=== PATIENT | female | born 1945 | race Caucasian/White ===

== ENCOUNTER 2020-01-16 06:49 | Inpatient (IN) ==
--- NOTE | 2019-12-31 15:52 | PAT Medication Instructions ---
Medication Instructions Date of Service December 31, 2019 Home Medications amlodipine 10 mg PO QAM aspirin 81 mg PO QAM fenofibrate nanocrystallized [Tricor] 145 mg PO QAM levothyroxine 88 mcg PO QAM lisinopril 40 mg PO QAM multivitamin 1 tab PO QAM omega 9-yez-thk-fish oil [Fish Oil] 1 cap PO QAM omeprazole 40 mg PO QAM pravastatin 20 mg PO QAM tizanidine [Zanaflex] 4 mg PO HS vitamin E 400 unit PO QAM gabapentin 300 mg PO TID prednisone 10 mg PO QAM STOP taking 2 weeks before surgery If surgery is within 2 weeks, stop taking as soon as possible. omega 0-con-cvj-fish oil [Fish Oil] 1 cap PO QAM vitamin E 400 unit PO QAM STOP taking 48 hours before surgery fenofibrate nanocrystallized [Tricor] 145 mg PO QAM DO NOT take the morning of surgery lisinopril 40 mg PO QAM multivitamin 1 tab PO QAM Take morning of surgery With a small sip of water, OTHERWISE NOTHING TO EAT OR DRINK AFTER MIDNIGHT: amlodipine 10 mg PO QAM aspirin 81 mg PO QAM levothyroxine 88 mcg PO QAM omeprazole 40 mg PO QAM pravastatin 20 mg PO QAM gabapentin 300 mg PO TID prednisone 10 mg PO QAM Take evening before surgery tizanidine [Zanaflex] 4 mg PO HS gabapentin 300 mg PO TID Other Notes If you have any questions please call us at [phone] or [phone] or [phone] or [phone]
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
--- NOTE | 2020-01-01 14:30 | XRay Report ---
XR chest Pre-admission PA/Lat CLINICAL HISTORY: Preoperative evaluation. COMPARISON STUDY: Chest radiograph August 29, 2018. FINDINGS: Lung volumes are normal. There is no consolidation or evidence for pulmonary edema. Mild ca rdiomegaly is unchanged. Incidental note is made of a left clavicular internal fixation and anterior cervical spine fusion. IMPRESSION: No acute cardiopulmonary findings. No change in appearance of the chest. ACT 112: Negative or not required by law. Electronically signed by: Mark Ring M.D. 01/01/2020 2:28 PM
--- NOTE | 2020-01-01 14:40 | Electrocardiogram Report ---
Test Reason : Blood Pressure : / mmHG Vent. Rate : 073 BPM Atrial Rate : 073 BPM P-R Int : 156 ms QRS Dur : 092 ms QT Int : 416 ms P-R-T Axes : 069 053 035 degrees QTc Int : 458 ms Sinus rhythm with Premature supraventricular complexes Otherwise normal ECG When compared with ECG of 29-AUG-2018 11:43, Premature supraventricular complexes are now Present Confirmed by Ilya Saldivar ([id number]) on 01/01/2020 2:40:47 PM Referred By: Randal Ramirez Confirmed By:Ilya Saldivar
[2020-01-01 15:12] LABS: Basophils # (auto) 0.01 K/uL (0-0.2); Basophils % (auto) 0.1 %; Eosinophils # (auto) 0.04 K/uL (0-0.5); Eosinophils % (auto) 0.3 %; Hematocrit (blood only) 41.7 % (37-47); Hemoglobin 13.5 g/dL (12.0-16.0); Immature Granulocytes % (auto) 0.9 %; Lymphocytes # (auto) 2.97 K/uL (1.2-3.4); Lymphocytes % (auto) 25.4 %; Mean Corpuscular Hemoglobin 29.2 pg (25-34); Mean Corpuscular Hgb Conc 32.4 g/dL (32-36); Mean Corpuscular Volume 90.3 fL (80-100); Mean Platelet Volume 10.4 fL (7.4-10.4); Monocytes # (auto) 0.61 K/uL (0.11-0.59); Monocytes % (auto) 5.2 %; Neutrophils # (auto) 7.95 K/uL (1.4-6.5); Neutrophils % (auto) 68.1 %; Platelet Count 257 K/uL (130-400); RDW Coefficient of Variation 15.8 % (11.5-14.5); RDW Standard Deviation 51.9 fL (36.4-46.3); Red Blood Count 4.62 M/uL (4.2-5.4); White Blood Count 11.68 K/uL (4.8-10.8)
[2020-01-01 15:20] LABS: BUN Creatinine Ratio 29.8 (10-20); Calcium 8.8 mg/dl (8.5-10.1); Creatinine Clr Calc Pharmacy 51.2 ml/min; Est GFR (Non-African American) 58.7; Potassium 4.3 mmol/L (3.5-5.1)
[2020-01-01 15:26] LABS: Partial Thromboplastin Ratio 0.8; Partial Thromboplastin Time 21.3 Seconds (21.0-31.0); Prothrombin Time 10.6 Seconds (9.0-12.0)
[2020-01-01 15:31] LABS: Appearance Urine Clear (Clear); Bacteria Urine Automated 4+ (Negative); Bilirubin Urine Negative (Negative); Blood Urine Negative (Negative); Cast Urine Automated 0 /lpf (0-5); Color Urine Yellow; Glucose Urine UA Negative (Negative); Ketones Urine Negative (Negative); Leukocyte Esterase Urine Trace (Negative); Nitrite Urine Negative (Negative); Protein Urine Negative (Negative); RBC Urine Automated 0-4 /hpf (0-4); Urobilinogen Urine Negative (Negative)
[~2020-01-16 06:49] MED LIST: ACETAMINOPHEN 500 MG TAB PO SCH; CEFAZOLIN 2000MG 2,000 MG/15 ML SYR IV SCH; CeleBREX 200 MG CAP PO SCH; GABAPENTIN 300 MG CAP PO SCH; LR 15ML/HR IV SCH
[2020-01-16] MEDS ORDERED: MIDAZOLAM HCL 1 MG/ML 2ML VIAL ONE (08:32)
[2020-01-16] MEDS ORDERED: PROPOFOL IV EMULSION 10 MG/ML 20 ML VIAL IV ONE (08:32)
[2020-01-16] MEDS ORDERED: ROCURONIUM BROMIDE 10 MG/ML 5 ML VIAL ONE ×3 (08:32→10:19)
[2020-01-16] MEDS ORDERED: fentaNYL citrate 100 MCG/2 ML VIAL ONE ×2 (08:32→09:42)
[2020-01-16] MEDS ORDERED: DEXAMETHASONE SOD INJ 4 MG/ML VIAL ONE (08:32)
[2020-01-16] MEDS ORDERED: ONDANSETRON INJ 2 MG/ML 2 ML VIAL ONE (08:32)
--- NOTE | 2020-01-16 08:38 | History & Physical Bridge Note ---
Date of Service January 16, 2020 History & Physical Bridge Note I have examined the patient, reviewed the History & Physical and in the interval since the performance of the History & Physical I have noted the following changes of clinical significance: no changes noted
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
[2020-01-16] MEDS ORDERED: BUPIVACAINE/EPINEPHRINE 0.25% 1:200,000 30 ML VIAL ONE (08:48)
[2020-01-16] MEDS ORDERED: BACITRACIN INJ 50,000 UNIT VIAL ONE (08:49)
[2020-01-16] MEDS ORDERED: FLOSEAL HEMOSTATIC MATRIX 10ML TOP ONE (09:55)
[2020-01-16] MEDS ORDERED: ALBUMIN HUMAN 5% 12.5 GM/250 ML VIAL IV ONE (10:16)
[2020-01-16] MEDS ORDERED: GLYCOPYRROLATE 0.2 MG/ML VIAL ONE (10:33)
[2020-01-16] MEDS ORDERED: NEOSTIGMINE METHYLSULFATE 1 MG/ML 10ML VIAL ONE (10:33)
--- NOTE | 2020-01-16 11:23 | Operative Report ---
Post Operative Report Pre & Post Diagnosis Operation Date: 01/16/20 09:05 Pre-Op Diagnosis: Lumbar spinal stenosis with neurogenic claudication Post-Op Diagnosis: Same I identified the patient and participated in the time-out.: Yes Procedure Operation Date: 01/16/20 09:05 Actual Procedures #1 lumbar decompression with bilateral medial facetectomies and foraminotomies L2-3, L3-4, L4-5. #2 posterior spinal fusion L3-4, L4-5, L5-S1. #3 placement posterior segmental instrumentation L3-S1. #4 interbody fusion L4-5 per #5 placed a peek cage 11 x 22 mm at L4-5 per #6 placement of locally harvested morselized autograft in the posterior lateral gutters. #7 placement infuse collagen sponge, master graft in the posterior lateral gutters and ostial amp and interbody space. Surgeon Randal Ramirez, Math And Physics Instructor Arnel Ryan Estimated Blood Loss 250 Findings See Below Foot 2 inches tall weighing over 79 kg with a BMI in excess of 32. Patient's body habitus did add significant technical difficulty requiring our deeper retractors and longer instruments in order to perform her procedure. This added at least 25% increase in the operative time. Specimens None Indications This is a 74-year-old female presents above-mentioned diagnosis after failing extensive course of nonoperative care is here for surgical intervention. Description of Procedure Patient was met with identified informed consent obtained. Patient was then taken to the operative suite underwent intubation placed in the prone position on the Spenser table on top of the Cyrus frame. All bony prominences well- padded eyes inspected to ensure no external pressure placed upon them. This point the lumbar spine was prepped and draped in normal sterile fashion. Sharp dissection with the assistance of Bovie cautery performed down to and exposing the lamina transverse processes of L3-L4-L5 and the sacral ala bilaterally. From a caudal cephalad fashion complete laminectomy of L4 L3 and partial laminectomy of L2 was performed including bilateral medial facetectomies and for aminotomies addressing severe spinal stenosis. Pedicle screws were then placed in L3-L4-L5 and S1 levels bilaterally with assistance of fluoroscopy the proper sized gage placed. By way of a trans-foraminal approach on the left complete discectomy was performed endplates curetted to subcortical bleeding bone and 11 x 22 mm peek cage filled with osteo-bone graft tapped position. The rods were then locked into final position bilaterally. The transverse processes of L3-L4-L5 and sacral ala burred to subcortical bleeding bone. Infuse collagen sponge master graft local autograft was placed in the posterior gutters. 15 round HAFSA drain inserted. The incision was then closed with 1 Vicryl in the fascia 2-0 Vicryl subcutaneously and 4 Monocryl for final skin closure. Steri- Strip sterile dressings placed. Patient will continue PACU stable addition. Please note spinal cord monitoring was utilized that the procedure no changes noted. Lastly Arnel Ryan was present at the entire procedure involved the patient positioning complex portions of the surgery and final skin closure. I attest to the content of the Intraoperative Record and any orders documented therein. Any exceptions are noted below.
--- NOTE | 2020-01-16 11:33 | Fluoroscopy Report ---
FL lumbar spine 2-3V CLINICAL HISTORY: L3-L5 DECOMPRESSION AND FUSION COMPARISON STUDY: FLUOROSCOPY TIME: 26 seconds. NUMBER OF FLUOROSCOPIC IMAGES: 2 FINDINGS: There are postsurgical changes of an L4-5 discectomy and interbody fusion. There is a grade 1 spondylolisthesis of L4 and L5. There are postsurgical changes of an L3-S1 spinal decompression an d fusion. IMPRESSION: Intraoperative fluoroscopic spot images obtained during an L3-S1 spinal decompression an d fusion. ACT 112: Negative or not required by law. Electronically signed by: Sav Sands M.D. 01/16/2020 11:32 AM
[2020-01-16] MEDS ORDERED: ePHEDrine sulfate 50 MG/ML AMP IV PRN (11:39)
[2020-01-16] MEDS ORDERED: FLUMAZENIL 0.1 MG/1 ML 10 ML VIAL IV PRN (11:39)
[2020-01-16] MEDS ORDERED: PROMETHAZINE HCL 12.5 MG in SODIUM CHLORIDE 0.9% 50 ML IV PRN ×2 (11:39→13:07)
[2020-01-16] MEDS ORDERED: ATROPINE SULFATE 0.1 MG/ML 10ML SYR IV PRN (11:39)
[2020-01-16] MEDS ORDERED: HYDROmorphone INJ 1 MG/ML SYRINGE IV PRN ×2 (11:39→13:07)
[2020-01-16] MEDS ORDERED: NALOXONE HCL 0.4 MG/1 ML VIAL/CARP IV PRN ×2 (11:39→13:07)
[2020-01-16] MEDS ORDERED: fentaNYL citrate 100 MCG/2 ML VIAL IV PRN (11:39)
[2020-01-16] MEDS ORDERED: LABETALOL HCL IV 5 MG/ML 20ML IV PRN (11:39)
[2020-01-16] MEDS ORDERED: ONDANSETRON INJ 2 MG/ML 2 ML VIAL IV PRN ×2 (11:39→13:07)
[2020-01-16 12:00] LABS: Hematocrit (blood only) 33.1 % (37-47); Hemoglobin 10.6 g/dL (12.0-16.0)
--- NOTE | 2020-01-16 12:48 | Anesthesiology Progress Note ---
Date of Service January 16, 2020 Anesthesia Post Procedure Vital Signs Vital Signs: Temp Pulse Pulse Resp BP Pulse Ox 01/16/20 12:45 78 18 165/84 H 93 01/16/20 12:35 36.7 C 77 16 138/88 94 01/16/20 12:25 77 16 138/81 96 01/16/20 12:15 76 14 133/72 95 01/16/20 12:05 77 16 133/72 95 01/16/20 11:55 75 16 127/71 95 01/16/20 11:47 36.5 C 79 14 123/66 96 01/16/20 07:34 36.7 C 74 18 161/92 H 95 Pain Intensity Lower Back: Pain Intensity: 7 Transfer of Care Handoff Completed per policy Notes Mental Status: alert / awake / arousable Patient Amnestic to Procedure: Yes Nausea / Vomiting: adequately controlled Pain: adequately controlled Airway Patency, RR, SpO2: stable & adequate BP & HR: stable & adequate Hydration State: stable & adequate Anesthetic Complications: no major complications apparent
[2020-01-16] MEDS ORDERED: HYDROmorphone INJ 0.5 MG/0.5 ML SYR IV PRN (13:07)
[2020-01-16] MEDS ORDERED: LORazepam 0.5 MG/1 ML VIAL IV PRN (13:07)
[2020-01-16] MEDS ORDERED: SOD PHOSPHATE/SOD BIPHOSPHATE ENEMA 132 ML BTL PR PRN (13:07)
[2020-01-16] MEDS ORDERED: LORazepam 0.5 MG TAB PO PRN (13:07)
[2020-01-16] MEDS ORDERED: DO NOT ADMINISTER FLU VACCINE PRN (13:07)
[2020-01-16] MEDS ORDERED: ALUMINUM/MAGNESIUM SUSP 30 ML UDC PO PRN (13:07)
[2020-01-16] MEDS ORDERED: FAMOTIDINE 20 MG TAB PO PRN (13:07)
[2020-01-16] MEDS ORDERED: DO NOT ADMINISTER PNEUMOCOCCAL VACCINE PRN (13:07)
[2020-01-16] MEDS ORDERED: ACETAMINOPHEN 1,000 MG/100 ML VIAL IV PRN (13:07)
[2020-01-16] MEDS ORDERED: ACETAMINOPHEN 500 MG TAB PO PRN (13:07)
[2020-01-16] MEDS ORDERED: MAGNESIUM HYDROXIDE SUSP 30 ML UDC PO PRN (13:07)
[2020-01-16] MEDS ORDERED: ONDANSETRON 4 MG OD TAB PO PRN (13:07)
[2020-01-16] MEDS ORDERED: METOCLOPRAMIDE HCL INJ 5 MG/ML 2 ML VIAL IV PRN (13:07)
[2020-01-16] MEDS ORDERED: bisacodyL 10 MG SUPP PR PRN (13:07)
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
[2020-01-16] MEDS: SODIUM CHLORIDE 0.9% 1000ML 1,000 ML IV SCH ×2 (13:53→22:25)
[2020-01-16] MEDS: GABAPENTIN 300 MG CAP PO SCH ×2 (15:17→21:53)
[2020-01-16] MEDS ORDERED: NON-FORMULARY MEDICATION (Melatonin 5 MG) PO PRN (17:39)
[2020-01-16] MEDS: CEFAZOLIN 2000MG 2,000 MG/15 ML SYR IV SCH (18:29)
[2020-01-16] MEDS: TRAMADOL HCL 50 MG TABLET PO PRN (21:53)
[2020-01-16] MEDS: DOCUSATE SODIUM/SENNA 50/8.6MG TAB PO SCH (21:53)
[2020-01-16] MEDS: TIZANIDINE HCL 4 MG TABLET PO SCH (21:53)
[2020-01-17] MEDS: CEFAZOLIN 2000MG 2,000 MG/15 ML SYR IV SCH (00:16)
[2020-01-17] MEDS: TRAMADOL HCL 50 MG TABLET PO PRN ×2 (03:13→16:13)
[2020-01-17] MEDS: POLYETHYLENE (MIRALAX) 17 GM PACK PO SCH ×4 (05:43→23:16)
[2020-01-17] MEDS: LEVOTHYROXINE SODIUM 88 MCG TABLET PO SCH (05:43)
[2020-01-17 06:01] LABS: Basophils # (auto) 0.01 K/uL (0-0.2); Basophils % (auto) 0.1 %; Eosinophils # (auto) 0.04 K/uL (0-0.5); Eosinophils % (auto) 0.4 %; Hematocrit (blood only) 29.8 % (37-47); Hemoglobin 9.4 g/dL (12.0-16.0); Immature Granulocytes # (auto) 0.01 K/uL (0.00-0.02); Immature Granulocytes % (auto) 0.1 %; Lymphocytes # (auto) 2.28 K/uL (1.2-3.4); Lymphocytes % (auto) 24.4 %; Mean Corpuscular Hemoglobin 29.1 pg (25-34); Mean Corpuscular Hgb Conc 31.5 g/dL (32-36); Mean Corpuscular Volume 92.3 fL (80-100); Mean Platelet Volume 10.4 fL (7.4-10.4); Monocytes # (auto) 1.06 K/uL (0.11-0.59); Monocytes % (auto) 11.3 %; Neutrophils # (auto) 5.95 K/uL (1.4-6.5); Neutrophils % (auto) 63.7 %; Platelet Count 175 K/uL (130-400); RDW Coefficient of Variation 15.7 % (11.5-14.5); RDW Standard Deviation 53.6 fL (36.4-46.3); Red Blood Count 3.23 M/uL (4.2-5.4); White Blood Count 9.35 K/uL (4.8-10.8)
[2020-01-17 06:32] LABS: BUN Creatinine Ratio 16.1 (10-20); Calcium 7.7 mg/dl (8.5-10.1); Creatinine Clr Calc Pharmacy 50.1 ml/min; Est GFR (African American) 66.3; Est GFR (Non-African American) 57.2; Potassium 4.5 mmol/L (3.5-5.1)
--- NOTE | 2020-01-17 08:34 | Hospitalist Progress Note ---
Date of Service January 17, 2020 Assessment & Plan (1) Spinal stenosis, lumbar region with neurogenic claudication: (2) Post-operative state: -s/p lumbar surgery on 01/16/2020 -management of the HAFSA drain as per orthopedics -current pain medication regimen appears to control back pain -continue PT/OT evaluations Hypocalcemia -post-op calcium level noted to be mildly low as 7.7 after IV fluids -serum ionized calcium checked and is mildly low as 1.03, give IV calcium gluconate -checking Vitamin D levels and PTH levels (3) HTN (hypertension): -Cont home lisinopril, amlodipine, statin (4) GERD (gastroesophageal reflux disease): -PPI per home regimen. (5) Hypothyroidism: -Continue home dose levothyroxine as per home regimen. (6) DVT prophylaxis: SCDs Admission and Anticipated Discharge Date Admission Date: January 16, 2020 as per patient, possible orthopedic discharge by 01/19/2020 Subjective Patient seen and examined laying in the bed. She reported she was able to do some physical therapy today. No distress. HAFSA drain with serosanguinous fluid from the back. no shortness of breath. no chest pain. no abdomen pain. no nausea. no vomiting. Review of Systems Review of Systems: All systems reviewed & are unremarkable except as noted in HPI & below Physical Exam Constitutional: WD/WN, vitals as above Eyes: PERRL, conjunctivae normal, anicteric sclerae EOM intact bilaterally ENMT: external ear and nose normal, oropharynx normal Neck: normal visual inspection Respiratory: normal respiratory effort, lungs clear to auscultation Cardiovascular: Rate/Rhythm: regular rate Gastrointestinal (Abdomen): normal bowel sounds, soft, nontender, no hepat osplenomegaly Musculoskeletal: Head/Neck/Chest: normocephalic and head atraumatic Neurologic: PERRL, EOMI, accommodation nl, no face palsy, no dysarthria CN's II-XI intact bilaterally Psychiatric: A+Ox3, euthymic affect HAFSA drain to back draining serosanguinous fluid Results & Data ([facility]) Vital Signs (Past 12 Hours) Vital Signs Temp Pulse Pulse Resp BP Pulse Ox 01/17/20 07:21 36.7 C 95 H 16 123/66 91 01/17/20 03:42 36.8 C 84 20 130/78 93 01/16/20 23:10 36.7 C 80 18 116/70 93
[2020-01-17] MEDS ORDERED: CALCIUM GLUCONATE 10% 1,000 MG in SODIUM CHLORIDE 0.9% 50 ML IV STA (08:36)
[2020-01-17] MEDS: ASPIRIN 81 MG ECTAB PO SCH (09:00)
[2020-01-17] MEDS: AMLODIPINE BESYLATE 5 MG TAB PO SCH (09:00)
[2020-01-17] MEDS: MULTIVITAMIN TAB PO SCH (09:00)
[2020-01-17] MEDS: GABAPENTIN 300 MG CAP PO SCH ×3 (09:00→20:26)
[2020-01-17] MEDS: lisinopriL 40 MG TAB PO SCH (09:01)
[2020-01-17] MEDS: FENOFIBRATE NANOCRYSTALLIZED 145 MG TABLET PO SCH (09:01)
[2020-01-17] MEDS: PANTOprazole 40 MG TAB PO SCH (09:01)
[2020-01-17] MEDS: PRAVASTATIN SOD 20 MG TAB PO SCH (09:01)
[2020-01-17] MEDS: SODIUM CHLORIDE 0.9% 1000ML 1,000 ML IV SCH (09:02)
--- NOTE | 2020-01-17 09:34 | Orthopedic Progress Note ---
Date of Service January 17, 2020 Assessment & Plan (1) Spinal stenosis, lumbar region with neurogenic claudication: This time we will continue physical therapy monitor her HAFSA output hopefully discharge home Sunday. Present on Admission?: Yes Admission and Anticipated Discharge Date Admission Date: January 16, 2020 Subjective Back pain controlled leg symptoms improved. Physical Exam Physical Exam: Patient is good strength testing peers comfortable. Results & Data ([facility]) Vital Signs (Past 12 Hours) Vital Signs Temp Pulse Pulse Resp BP Pulse Ox 01/17/20 07:21 36.7 C 95 H 16 123/66 91 01/17/20 03:42 36.8 C 84 20 130/78 93 01/16/20 23:10 36.7 C 80 18 116/70 93
[2020-01-17] MEDS ORDERED: DEXAMETHASONE SOD PHOSPHATE 8 MG in SYRINGE 0 ML IV ONE (09:45)
[2020-01-17] MEDS: OXYCODONE HCL IR 5 MG TAB (IMMEDIATE RELEASE) PO PRN ×2 (15:23→23:15)
[2020-01-17] MEDS: DOCUSATE SODIUM/SENNA 50/8.6MG TAB PO SCH (20:26)
[2020-01-17] MEDS: CHOLECALCIFEROL (VITAMIN D) 400 UNITS TABLET PO SCH (20:26)
[2020-01-17] MEDS: TIZANIDINE HCL 4 MG TABLET PO SCH (20:26)
[2020-01-18] MEDS: POLYETHYLENE (MIRALAX) 17 GM PACK PO SCH ×4 (05:32→23:52)
[2020-01-18] MEDS: LEVOTHYROXINE SODIUM 88 MCG TABLET PO SCH (05:32)
[2020-01-18 05:36] LABS: Basophils # (auto) 0.01 K/uL (0-0.2); Basophils % (auto) 0.1 %; Eosinophils # (auto) 0.06 K/uL (0-0.5); Eosinophils % (auto) 0.6 %; Hematocrit (blood only) 29.4 % (37-47); Hemoglobin 9.2 g/dL (12.0-16.0); Immature Granulocytes # (auto) 0.03 K/uL (0.00-0.02); Immature Granulocytes % (auto) 0.3 %; Lymphocytes # (auto) 2.75 K/uL (1.2-3.4); Lymphocytes % (auto) 28.1 %; Mean Corpuscular Hemoglobin 28.8 pg (25-34); Mean Corpuscular Hgb Conc 31.3 g/dL (32-36); Mean Corpuscular Volume 92.2 fL (80-100); Mean Platelet Volume 10.4 fL (7.4-10.4); Monocytes # (auto) 1.12 K/uL (0.11-0.59); Monocytes % (auto) 11.5 %; Neutrophils % (auto) 59.4 %; Platelet Count 169 K/uL (130-400); RDW Coefficient of Variation 15.8 % (11.5-14.5); RDW Standard Deviation 53.5 fL (36.4-46.3); Red Blood Count 3.19 M/uL (4.2-5.4); White Blood Count 9.77 K/uL (4.8-10.8)
[2020-01-18 06:04] LABS: Albumin Level 2.9 gm/dl (3.4-5.0); BUN Creatinine Ratio 18.4 (10-20); Calcium 8.1 mg/dl (8.5-10.1); Creatinine Clr Calc Pharmacy 53.3 ml/min; Est GFR (African American) 71.6; Est GFR (Non-African American) 61.8; Potassium 3.9 mmol/L (3.5-5.1)
[2020-01-18 06:06] LABS: Bilirubin,Total 0.4 mg/dl (0.2-1); Total Protein 5.9 gm/dl (6.4-8.2)
--- NOTE | 2020-01-18 08:25 | Hospitalist Progress Note ---
Date of Service January 18, 2020 Assessment & Plan (1) Spinal stenosis, lumbar region with neurogenic claudication: (2) Post-operative state: -s/p lumbar surgery on 01/16/2020 -management of the HAFSA drain as per orthopedics -current pain medication regimen appears to control back pain -continue PT/OT evaluations Hypocalcemia -post-op serum calcium level noted to be mildly low as 7.7 after IV fluids -serum ionized calcium checked and is mildly low as 1.03, give IV calcium gluconate and subsequent ionized calcium improvements to 1.14 on 01/18/2020 Vitamin D deficiency -serum vitamin D level low as 24.9 and started vitamin D supplements on 01/17/2020, continue daily Vitamin D supplements elevated PTH -PTH on 01/17/2020 is elevated as 107.9 -recommend that upon hospital discharge, that patient continue Vitamin D supplements and then have Vitamin D and PTH levels re-assessed bu primary care doctor (3) HTN (hypertension): -Cont home lisinopril, amlodipine, statin (4) GERD (gastroesophageal reflux disease): -PPI per home regimen. (5) Hypothyroidism: -Continue home dose levothyroxine as per home regimen. (6) DVT prophylaxis: SCDs Admission and Anticipated Discharge Date Admission Date: January 16, 2020 possible orthopedic discharge by orthopedic service on 01/19/2020 Subjective HAFSA drain to the back. Patient feeling better. today. no distress. no chest pain. no abdomen pain. no vomiting. no dizziness. no headache Review of Systems Review of Systems: All systems reviewed & are unremarkable except as noted in HPI & below Physical Exam Constitutional: WD/WN, vitals as above Eyes: PERRL, conjunctivae normal, anicteric sclerae EOM intact bilaterally ENMT: external ear and nose normal, oropharynx normal Neck: normal visual inspection Respiratory: normal respiratory effort, lungs clear to auscultation Cardiovascular: Rate/Rhythm: regular rate Gastrointestinal (Abdomen): normal bowel sounds, soft, nontender, no hepatosplenomegaly Musculoskeletal: Head/Neck/Chest: normocephalic and head atraumatic HAFSA drain to the back Neurologic: PERRL, EOMI, accommodation nl, no face palsy, no dysarthria CN's II-XI intact bilaterally Psychiatric: A+Ox3, euthymic affect Results & Data ([place]) Vital Signs (Past 12 Hours) Vital Signs Temp Pulse Pulse Resp BP Pulse Ox 01/18/20 07:25 36.9 C 82 16 120/65 93 01/18/20 05:30 74 16 111/71 94 01/17/20 23:17 36.8 C 81 16 119/72 91
[2020-01-18] MEDS: GABAPENTIN 300 MG CAP PO SCH ×3 (08:39→21:15)
[2020-01-18] MEDS: AMLODIPINE BESYLATE 5 MG TAB PO SCH (08:39)
[2020-01-18] MEDS: MULTIVITAMIN TAB PO SCH (08:39)
[2020-01-18] MEDS: ASPIRIN 81 MG ECTAB PO SCH (08:39)
[2020-01-18] MEDS: PRAVASTATIN SOD 20 MG TAB PO SCH (08:40)
[2020-01-18] MEDS: lisinopriL 40 MG TAB PO SCH (08:40)
[2020-01-18] MEDS: PANTOprazole 40 MG TAB PO SCH (08:40)
[2020-01-18] MEDS: FENOFIBRATE NANOCRYSTALLIZED 145 MG TABLET PO SCH (08:40)
[2020-01-18] MEDS: CHOLECALCIFEROL (VITAMIN D) 400 UNITS TABLET PO SCH (08:40)
--- NOTE | 2020-01-18 08:47 | Orthopedic Progress Note ---
Date of Service January 18, 2020 Assessment & Plan (1) Spinal stenosis, lumbar region with neurogenic claudication: Patient is doing quite well. We will continue with ambulation today. Maintain HAFSA drain and dressing. Continue with aggressive bowel regimen. DVT prophylaxis is in the form of teds and SCDs. Anticipate discharge home tomorrow. Admission and Anticipated Discharge Date Admission Date: January 16, 2020 Supervising Physician Co-Signing Physician Notes Dr. Randal Ramirez Subjective Patient is postoperative day 2 multilevel lumbar decompression fusion. She is doing quite well. Denies radicular leg pain. Back pain is controlled. HAFSA drain output last shift was 60 cc. Output is 245 cc over the past 24 hours. H&H is morning are 9.2 and 29.4 respectively. She reports having a bowel movement this morning. Yesterday in physical therapy ambling 275 feet. No other complaints. Review of Systems Review of Systems: All systems reviewed & are unremarkable except as noted in HPI & below Physical Exam Physical Exam: She sitting on the edge of the bed eating breakfast. Alert and oriented x3. No acute distress. Lumbar dressing is clean dry and intact. Lower extremities are neurovascular intact bilaterally. Calves are soft nontender bilaterally. Constitutional: WD/WN, vitals as above Eyes: normal visual nuñez by confrontation ENMT: external ear and nose normal, oropharynx normal Neck: normal visual inspection Respiratory: normal respiratory effort Cardiovascular: Vessels: dorsalis pedis pulses present Extremities: normal capillary refill Gastrointestinal (Abdomen): Inspection/Auscultation: abdomen normal to inspection Musculoskeletal: no cyanosis or clubbing, extremities motor strength 5/5 Extremities: strength 5/5 throughout Skin: no rashes, warm and dry Neurologic: normal touch/pain/proprioception, deep tendon reflexes 2+ bilaterally, plantar reflexes intact bilaterally and moves all extremities Psychiatric: A+Ox3, euthymic affect Results & Data ([facility]) Vital Signs (Past 12 Hours) Vital Signs Temp Pulse Pulse Resp BP Pulse Ox 01/18/20 07:25 36.9 C 82 16 120/65 93 01/18/20 05:30 74 16 111/71 94 01/17/20 23:17 36.8 C 81 16 119/72 91
[2020-01-18] MEDS: OXYCODONE HCL IR 5 MG TAB (IMMEDIATE RELEASE) PO PRN ×4 (09:12→23:57)
[2020-01-18] MEDS: DOCUSATE SODIUM/SENNA 50/8.6MG TAB PO SCH (21:15)
[2020-01-18] MEDS: TIZANIDINE HCL 4 MG TABLET PO SCH (21:15)
[2020-01-19] MEDS: LEVOTHYROXINE SODIUM 88 MCG TABLET PO SCH (05:59)
[2020-01-19] MEDS: POLYETHYLENE (MIRALAX) 17 GM PACK PO SCH (05:59)
[2020-01-19] MEDS: OXYCODONE HCL IR 5 MG TAB (IMMEDIATE RELEASE) PO PRN (06:05)
--- NOTE | 2020-01-19 07:43 | Anesthesiology Progress Note ---
Date of Service January 19, 2020 Anesthesia Post Procedure Vital Signs Vital Signs: Temp Pulse Resp BP Pulse Ox 01/18/20 23:18 95 01/18/20 23:17 37.4 C 79 16 145/75 H 86 L 01/18/20 15:10 37 C 78 14 131/68 92 Pain Intensity Lower Back: Pain Intensity: 7 Notes Mental Status: alert / awake / arousable and participated in evaluation Patient Amnestic to Procedure: Yes Nausea / Vomiting: adequately controlled Pain: adequately controlled Airway Patency, RR, SpO2: stable & adequate BP & HR: stable & adequate Hydration State: stable & adequate Anesthetic Complications: no major complications apparent and Pt Satisfied with anesthetic care
--- NOTE | 2020-01-19 08:16 | Hospitalist Progress Note ---
Date of Service January 19, 2020 Assessment & Plan (1) Spinal stenosis, lumbar region with neurogenic claudication: (2) Post-operative state: -s/p lumbar surgery on 01/16/2020 -management of the HAFSA drain as per orthopedics -current pain medication regimen appears to control back pain -continue PT/OT evaluations Hypocalcemia -post-op serum calcium level noted to be mildly low as 7.7 after IV fluids -serum ionized calcium checked and is mildly low as 1.03, give IV calcium gluconate and subsequent ionized calcium improvements to 1.14 on 01/18/2020 Vitamin D deficiency -serum vitamin D level low as 24.9 and started vitamin D supplements on 01/17/2020, continue daily Vitamin D supplements, prescriptions have been made upon discharge elevated PTH -PTH on 01/17/2020 is elevated as 107.9 -recommend that upon hospital discharge, that patient continue Vitamin D supplements and then have Vitamin D and PTH levels re-assessed bu primary care doctor (3) HTN (hypertension): -Cont home lisinopril, amlodipine, statin (4) GERD (gastroesophageal reflux disease): -PPI per home regimen. (5) Hypothyroidism: -Continue home dose levothyroxine as per home regimen. (6) DVT prophylaxis: SCDs while in the hospital Admission and Anticipated Discharge Date Admission Date: January 16, 2020 likely discharge by orthopedic service on 01/19/2020 Subjective HAFSA drain remains in the back. Patient is comfortable. she has not been seen by orthopedics yet. She wishes to go home as soon as the HAFSA drain can be removed. no dizziness. no headache. no shortness of breath. no abdomen pain. no nausea. no vomiting. has been ambulatory Review of Systems Review of Systems: All systems reviewed & are unremarkable except as noted in HPI & below Physical Exam Constitutional: WD/WN, vitals as above Eyes: PERRL, conjunctivae normal, anicteric sclerae EOM intact bilaterally ENMT: external ear and nose normal, oropharynx normal Neck: normal visual inspection Respiratory: normal respiratory effort, lungs clear to auscultation Cardiovascular: Rate/Rhythm: regular rate Gastrointestinal (Abdomen): normal bowel sounds, soft, nontender, no hepatosplenomegaly Musculoskeletal: Head/Neck/Chest: normocephalic and head atraumatic HAFSA drain to the back Neurologic: PERRL, EOMI, accommodation nl, no face palsy, no dysarthria CN's II-XI intact bilaterally Psychiatric: A+Ox3, euthymic affect Results & Data ([facility]) Vital Signs (Past 12 Hours) Vital Signs Temp Pulse Pulse Resp BP Pulse Ox 01/19/20 07:20 36.9 C 77 15 146/84 H 91 01/18/20 23:18 95 01/18/20 23:17 37.4 C 79 16 145/75 H 86 L
[2020-01-19] MEDS: GABAPENTIN 300 MG CAP PO SCH (08:52)
[2020-01-19] MEDS: MULTIVITAMIN TAB PO SCH (08:52)
[2020-01-19] MEDS: ASPIRIN 81 MG ECTAB PO SCH (08:52)
[2020-01-19] MEDS: AMLODIPINE BESYLATE 5 MG TAB PO SCH (08:53)
[2020-01-19] MEDS: PRAVASTATIN SOD 20 MG TAB PO SCH (08:53)
[2020-01-19] MEDS: PANTOprazole 40 MG TAB PO SCH (08:54)
[2020-01-19] MEDS: FENOFIBRATE NANOCRYSTALLIZED 145 MG TABLET PO SCH (08:55)
[2020-01-19] MEDS: lisinopriL 40 MG TAB PO SCH (08:55)
[2020-01-19] MEDS: CHOLECALCIFEROL (VITAMIN D) 400 UNITS TABLET PO SCH (08:55)
--- NOTE | 2020-01-19 12:14 | Discharge Summary ---
Date of Service January 19, 2020 Admission HPI Per Admitting Provider This is a 74-year-old female presents with back and bilateral leg pain. After failing extensive course of nonoperative care is here for surgical intervention. Principal Diagnosis Lumbar spinal stenosis with neurogenic claudication Discharge Data Allergies Allergy/AdvReac Type Severity Reaction Status Date / Time adhesive Allergy Unknown BANDAIDS-MAKES Verified 01/16/20 07:18 SKIN SORE RED Corticosteroids AdvReac Unknown Verified 01/16/20 17:40 (Glucocorticoids) hydrochlorothiazide AdvReac Unknown DECREASED Verified 01/16/20 07:18 KIDNEY FUNCTION PER PCP NOTE Consultations 01/16/20 13:07 Consult Case Management - Discharge Planning Routine Consult Hospitalist Routine Procedures Performed Operation Date: 01/16/20 09:05 Actual Procedures p L3-S1 Decompression And Fusion, L4-L5 Interbody Fusion, Spinal Cord Monitoring(Not Applicable) - Randal Ramirez DO Ordered Studies 01/16/20 09:05 FL fluoroscopy <1hr Routine FL lumbar spine 2-3V Routine Hospital Course (1) Spinal stenosis, lumbar region with neurogenic claudication: Patient underwent lumbar decompression fusion tolerated this well was taken to the orthopedic for postoperative. Postop day 1 she was up and ambulating progressed to postop day #2 on postop day 3 HAFSA drainage decreased probably. Excellent strength testing. Pain well controlled. Subsequently disc harged home. Discharge orders and instructions found the chart for further review. Total Time Total Time Spent Total Time Spent (In Minutes): 20 minutes Discharge Plan Discharge Items Patient Disposition: Home - Self-Care Reason For Visit: LUMBAR SPINAL STENOSIS WO NEUROGENIC CLAUDICATION Discharge Diagnosis: Lumbar spinal stenosis with neurogenic claudication Activity: As commented below Non-emergency contact: Primary Care Provider Call non-emergency contact if: you have any medication questions Follow-up/Referrals: Gaurang Leslie PA-C [Primary Care Provider] - 01/25/22 12:45 pm (IF YOU NEED TO CHANGE APPT PLEASE CALL PCP; [phone].) Diet: Regular Addtl Attending Provider Instructions: ACTIVITY RECOMMENDATIONS: SELF CARE INSTRUCTIONS AFTER THORACIC/LUMBAR FUSIONS 1. You may walk to your tolerance. It is good exercise for your legs and back. Expect some back and intermittent leg aches and pains. 2. You may perform "counter-top" level activities (make a sandwich, fernanda with a project, etc.). 3. No bending or lifting of more than 10 pounds or back twisting of any nature (roll like a log when turning in bed). 4. You may ride in a car for 20-30 minutes at a time. No driving until after your first visit with your doctor. 5. Frequent changes of position and restricting sitting to 30 minutes at a time will help limit the amount of back spasms and stiffness you may experience. 6. You may discontinue the use of ambulatory aids (cane, crutches, etc.) once your strength and confidence allow. 7. You may laundry machine operator the shower and let water strike your incision when you arrive home at least once daily. Do not take a tub bath, sit in a hot tub or go into a swimming pool until after your first recheck in the office. SPECIAL CARE INSTRUCTIONS: VERY IMPORTANT TO READ AND REVIEW A. Your surgical incision has been closed with a cosmetic suture under the skin that will dissolve in about 6 weeks. In 14 days, you can use a pair of clean scissors and cut the suture that is left outside of the skin at the ends of your incision. 1. The small skin tapes can be removed 7 days after surgery if they have not fallen off by that point. 2. You may keep the wound open to air as much as possible to promote healing after post-op day number 5 unless told otherwise by your doctor. 3. If you think the wound looks like it is becoming infected (redness or worsening drainage) and/or you are experiencing fever, chill or worsening back pain and muscle spasms, contact the office so that we may evaluate you as soon as possible. B. Complications are uncommon, but please contact us if you have any signs or symptoms of: 1. wound infection (fever higher than 102.5 degrees F, redness, separation of wound, drainage, or increasing pain from the incision) 2. blood clots in legs (pain, swelling, redness and warmth in legs) 3. urinary tract infection (fever higher than 102.5 degrees F, burning upon urination or increased frequency of urination) 4. nerve problems (inability to walk on your toes or heels, numbness, loss of bowel or bladder control) 5. any other symptoms that concern you C. Please call the office at if you have any concerns or questions about your operation or recovery. D. No smoking! Smoking drastically decreases the chance of a solid fusion. E. Do not take any anti-inflammatory medications (Indocin, Advil, Motrin, Aspirin, Naprosyn, etc.) as these may inhibit the chance of a solid fusion. Tylenol is okay to take for pain. MANAGING PAIN AFTER SPINAL SURGERY 1. Narcotic medication is intended for short-term use and will be provided for surgical pain. Surgical pain usually lasts for a period of 4-6 weeks. Narcotic medication includes Percocet, Vicodin, Darvocet, Tylenol #3 or Lortab. 2. Longer-term pain is more appropriately treated with non-narcotic medication such as Tylenol ES. 3. Muscle spasm is not appropriately treated with narcotics. Muscle relaxers such as Soma, Flexeril or Skelaxin can be used along with Tylenol ES. 4. Remember that we all live with some "aches and pains". This is not unusual or uncommon after an injury or as we get older. a. Back pain is expected and may include muscle spasms for 4 to 6 weeks after surgery. The pain should gradually improve. If the pain worsens for no apparent reason, please contact the office. b. Intermittent leg pain may also be experienced and should not be concerned about unless it worsens for no apparent reason. If so, please contact the office. 5. We will provide appropriate medication within the normal guidelines of their prescribed use. We will also be very cautious and aware of potential abuse and extended duration of patients' medication needs. a. Pain medications are for your comfort and to assist with sleep and rest so that the tissue can heal. They are not provided in order to return to normal activity and should not be used through the day. To do so or worsening pain at night can result from ongoing tissue damage and development of tolerance to the prescribed medicine. 6. Please allow 2-3 days to process refills. Prescriptions will not be mailed but must be picked up at the office. FOLLOW UP VISIT: Keep your scheduled follow-up appointment. Any questions, please call the office at . 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[employer] Provider Instructions: Hypocalcemia -post-op serum calcium level noted to be mildly low as 7.7 after IV fluids -serum ionized calcium checked and is mildly low as 1.03, give IV calcium gluconate and subsequent ionized calcium improvements to 1.14 on 01/18/2020 Vitamin D deficiency -serum vitamin D level low as 24.9 and started vitamin D supplements on 01/17/2020, continue daily Vitamin D supplements elevated PTH -PTH on 01/17/2020 is elevated as 107.9 -recommend that upon hospital discharge, that patient continue Vitamin D supplements and then have Vitamin D and PTH levels re-assessed bu primary care doctor Pending Studies at Discharge: No Stand-Alone Forms: [facility], Opioid Pain Management, Smoking Cessation Medications and DC Order Prescriptions: New tramadol 50 mg tablet 50 mg PO Q6H PRN (Reason: pain, moderate) Qty: 30 RF: 0 oxycodone 5 mg tablet 5 mg PO Q6H PRN (Reason: pain, severe) Qty: 30 RF: 0 cholecalciferol (vitamin D3) [Vitamin D3] 10 mcg (400 unit) Tablet 400 unit PO QAM 30 Days Qty: 30 RF: 0 Continued multivitamin Tablet 1 tab PO QAM RF: 0 tizanidine [Zanaflex] 4 mg Tablet 4 mg PO HS RF: 0 omeprazole 40 mg Capsule,Delayed Release(Dr/Ec) 40 mg PO QAM RF: 0 aspirin 81 mg Tablet,Delayed Release (Dr/Ec) 81 mg PO QAM RF: 0 amlodipine 10 mg Tablet 10 mg PO QAM RF: 0 pravastatin 20 mg Tablet 20 mg PO QAM RF: 0 lisinopril 40 mg Tablet 40 mg PO QAM RF: 0 vitamin E 400 unit Capsule 400 unit PO QAM RF: 0 fenofibrate nanocrystallized [Tricor] 145 mg Tablet 145 mg PO QAM RF: 0 omega 5-tik-zlf-fish oil [Fish Oil] 1,000 mg (120 mg-180 mg) Capsule 1 cap PO QAM RF: 0 levothyroxine 88 mcg Capsule 88 mcg PO QAM RF: 0 gabapentin 300 mg Capsule 300 mg PO TID RF: 0 melatonin 5 mg Capsule 5 mg PO HS PRN (Reason: Insomnia) RF: 0 Discharge Orders: Discharge Order (Routine); Ordered 01/19/20 Ordered By: Randal Gifford/Other Patient Handouts: Surgery Prevent DVT After, ED Stockings Jeremi Admission Data Admit Date/Time: 01/16/20 11:48 Attending Provider: Ashley,Randal M Admit Provider: Randal Ramirez Primary Care Provider: Gaurang Leslie Other Providers: Bryan Ho Other Interventions: Discharge Summary Assessment (RN) Last Done: 01/19/20 11:17
== END 2020-01-19 12:17 | disposition home or self-care (01) | DRG 460 ==
LOC: ASU 06:49 → 3E 11:48

== ENCOUNTER 2021-12-13 12:07 | Inpatient (IN) ==
[2021-12-13 13:00] LABS: Basophils # (auto) 0.02 K/uL (0-0.2); Basophils % (auto) 0.3 %; Eosinophils # (auto) 0.32 K/uL (0-0.5); Eosinophils % (auto) 4.2 %; Hematocrit (blood only) 44.6 % (37-47); Hemoglobin 14.7 g/dL (12.0-16.0); Lymphocytes # (auto) 3.01 K/uL (1.2-3.4); Lymphocytes % (auto) 39.2 %; Mean Corpuscular Hemoglobin 28.6 pg (25-34); Mean Corpuscular Volume 86.8 fL (80-100); Mean Platelet Volume 11.2 fL (7.4-10.4); Monocytes # (auto) 0.67 K/uL (0.11-0.59); Monocytes % (auto) 8.7 %; Neutrophils # (auto) 3.66 K/uL (1.4-6.5); Neutrophils % (auto) 47.6 %; Platelet Count 256 K/uL (130-400); RDW Coefficient of Variation 15.9 % (11.5-14.5); RDW Standard Deviation 51.1 fL (36.4-46.3); Red Blood Count 5.14 M/uL (4.2-5.4); White Blood Count 7.68 K/uL (4.8-10.8)
[2021-12-13] MEDS ORDERED: MoRPHine SULFATE 10 MG/ML CARP/VIAL IV STA (13:11)
[2021-12-13] MEDS ORDERED: SODIUM CHLORIDE 0.9% 1000ML 500 ML IV ONE (13:11)
[2021-12-13] MEDS ORDERED: ONDANSETRON INJ 2 MG/ML 2 ML VIAL IV STA (13:11)
[2021-12-13] MEDS ORDERED: MoRPHine SULFATE 4 MG/ML 1 ML CARP\\VIAL IV PRN (13:11)
[2021-12-13] MEDS ORDERED: dexAMETHasone**PF** 10 MG/ML VIAL IV ONE (13:11)
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
[2021-12-13 13:31] LABS: Alanine Aminotransferase 19 U/L (7-52); Albumin Globulin Ratio 1.5 (0.9-2); Albumin Level 4.4 gm/dl (3.4-5.0); Alkaline Phosphatase 63 U/L (34-104); Anion Gap 6 (3-11); Aspartate Aminotransferase 22 U/L (13-39); BUN Creatinine Ratio 32.2 (10-20); Bilirubin,Total 0.4 mg/dl (0.2-1.0); Blood Urea Nitrogen 29 mg/dl (6-23); Calcium 9.8 mg/dl (8.5-10.1); Carbon Dioxide 29 mmol/L (21-32); Chloride 108 mmol/L (98-107); Est GFR (African American) 72.5 ml/min; Est GFR (Non-African American) 62.5 ml/min; Glucose 114 mg/dl (70-99(Fasting)); Potassium 4.7 mmol/L (3.5-5.1); Sodium 143 mmol/L (136-145); Total Protein 7.4 gm/dl (6.0-8.3)
[2021-12-13 14:35] LABS: Appearance Urine Clear (Clear); Bilirubin Urine Negative (Negative); Blood Urine Negative (Negative); Color Urine Yellow; Glucose Urine UA Negative (Negative); Ketones Urine Negative (Negative); Leukocyte Esterase Urine Negative (Negative); Nitrite Urine Negative (Negative); Protein Urine Negative (Negative); Specific Gravity Urine 1.021 (1.000-1.030); Urobilinogen Urine Negative (Negative)
[2021-12-13] MEDS ORDERED: LORazepam 0.5 MG TAB PO PRN (14:41)
[2021-12-13] MEDS ORDERED: ACETAMINOPHEN 1,000 MG/100 ML VIAL IV PRN (14:41)
[2021-12-13] MEDS ORDERED: LORazepam 0.5 MG/1 ML VIAL IV PRN (14:41)
[2021-12-13] MEDS ORDERED: HYDROmorphone INJ 0.5 MG/0.5 ML SYR IV PRN (14:41)
[2021-12-13] MEDS ORDERED: PROMETHAZINE HCL 12.5 MG in SODIUM CHLORIDE 0.9% 50 ML IV PRN (14:41)
[2021-12-13] MEDS ORDERED: KETOROLAC TROMETHAMINE 15 MG/ML VIAL IV PRN (14:41)
[2021-12-13] MEDS ORDERED: NALOXONE HCL 0.4 MG/1 ML VIAL/CARP IV PRN (14:41)
[2021-12-13] MEDS ORDERED: ONDANSETRON 4 MG OD TAB PO PRN (14:41)
[2021-12-13] MEDS ORDERED: ONDANSETRON INJ 2 MG/ML 2 ML VIAL IV PRN (14:41)
[2021-12-13] MEDS ORDERED: oxyCODONE HCL IR 5 MG TAB (IMMEDIATE RELEASE) PO PRN (14:41)
[2021-12-13] MEDS ORDERED: METOCLOPRAMIDE HCL INJ 5 MG/ML 2 ML VIAL IV PRN (14:41)
[2021-12-13] MEDS ORDERED: traMADol HCL 50 MG TABLET PO PRN (14:41)
[2021-12-13] MEDS ORDERED: ACETAMINOPHEN 500 MG TAB PO PRN (14:41)
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
[2021-12-13] MEDS: HYDROmorphone INJ 1 MG/ML SYRINGE IV PRN (15:51)
[2021-12-13] MEDS: LACTATED RINGER'S 1,000 ML IV SCH (15:55)
[2021-12-13] MEDS ORDERED: FUROSEMIDE 20 MG TAB PO PRN (16:37)
[2021-12-13] MEDS ORDERED: DOCUSATE SODIUM 100 MG CAP PO PRN (16:46)
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
[2021-12-13] MEDS: dexAMETHasone 8 MG in SYRINGE 0 ML IV SCH (20:42)
[2021-12-13] MEDS: CITALOPRAM 20 MG TAB PO SCH (20:42)
[2021-12-13] MEDS: BACLOFEN 20 MG TAB PO SCH (20:43)
[2021-12-13] MEDS: PREGABALIN 75 MG CAP PO SCH (20:44)
[2021-12-14] MEDS: dexAMETHasone 8 MG in SYRINGE 0 ML IV SCH ×2 (05:19→16:48)
[2021-12-14] MEDS: LACTATED RINGER'S 1,000 ML IV SCH ×2 (05:20→16:48)
[2021-12-14] MEDS: LEVOTHYROXINE SODIUM 88 MCG TABLET PO SCH (05:31)
[2021-12-14] MEDS: HYDROmorphone INJ 1 MG/ML SYRINGE IV PRN (05:34)
[2021-12-14] MEDS ORDERED: ceFAZolin 2000MG 2,000 MG/15 ML SYR IV SCH (06:00)
[2021-12-14] MEDS: PANTOprazole 40 MG TAB PO SCH (08:45)
[2021-12-14] MEDS: amLODIPine BESYLATE 5 MG TAB PO SCH (08:45)
[2021-12-14] MEDS: FENOFIBRATE NANOCRYSTALLIZED 145 MG TABLET PO SCH (08:46)
[2021-12-14] MEDS: lisinopril 40 MG TAB PO SCH (08:46)
[2021-12-14] MEDS: ATORVASTATIN 20 MG TAB PO SCH (08:46)
[2021-12-14] MEDS: PREGABALIN 75 MG CAP PO SCH ×2 (08:50→21:43)
[2021-12-14] MEDS ORDERED: fentaNYL citrate 100 MCG/2 ML VIAL ONE (10:21)
[2021-12-14] MEDS ORDERED: ONDANSETRON INJ 2 MG/ML 2 ML VIAL ONE (10:21)
[2021-12-14] MEDS ORDERED: PROPOFOL IV EMULSION 10 MG/ML 20 ML VIAL IV ONE ×2 (10:21→13:51)
[2021-12-14] MEDS ORDERED: ROCURONIUM BROMIDE 10 MG/ML 5 ML VIAL IV ONE (10:21)
[2021-12-14] MEDS ORDERED: MIDAZOLAM HCL 1 MG/ML 2ML VIAL ONE (10:21)
[2021-12-14] MEDS ORDERED: DEXAMETHASONE SOD INJ 4 MG/ML VIAL ONE (10:21)
[2021-12-14] MEDS ORDERED: HYDROmorphone INJ 2 MG/ML SYR/VIAL ONE (10:21)
--- NOTE | 2021-12-14 12:00 | History & Physical Bridge Note ---
Date of Service December 14, 2021 History & Physical Bridge Note I have examined the patient, reviewed the History & Physical and in the interval since the performance of the History & Physical I have noted the following changes of clinical significance: no changes noted Lumbar decompression fusion L2-L3 removal hardware L3-S1
[2021-12-14] MEDS ORDERED: ATROPINE SULFATE 0.1 MG/ML 10ML SYR IV PRN (12:05)
[2021-12-14] MEDS ORDERED: HYDROmorphone INJ 1 MG/ML SYRINGE IV PRN ×2 (12:05→16:06)
[2021-12-14] MEDS ORDERED: PROMETHAZINE HCL 6.25 MG in SODIUM CHLORIDE 0.9% 50 ML IV PRN (12:05)
[2021-12-14] MEDS ORDERED: ePHEDrine sulfate 50 MG/ML AMP IV PRN (12:05)
[2021-12-14] MEDS ORDERED: SUGAMMADEX SODIUM 200 MG/2 ML VIAL IV ONE (12:15)
[2021-12-14] MEDS ORDERED: BUPIVACAINE/EPINEPHRINE 0.25% 1:200,000 30 ML VIAL ONE (12:17)
[2021-12-14] MEDS ORDERED: ceFAZolin 330 MG/ML 1 GM VIAL ONE (12:17)
[2021-12-14] MEDS ORDERED: PHENYLEPHRINE HCL 10 MG/ML VIAL ONE (13:00)
[2021-12-14] MEDS ORDERED: FLOSEAL HEMOSTATIC MATRIX 10ML TOP ONE (13:16)
--- NOTE | 2021-12-14 14:20 | Operative Report ---
Post Operative Report Pre & Post Diagnosis Operation Date: 12/14/21 07:00 Pre-Op Diagnosis: Spinal stenosis, lumbar region with neurogenic claudication Post-Op Diagnosis: Spinal stenosis, lumbar region with neurogenic claudication I identified the patient and participated in the time-out.: Yes Procedure Operation Date: 12/14/21 07:00 Actual Procedures #1 Removal of posterior instrumentation L3-S1. #2 exploration of fusion L3-S1. #3 lumbar decompression with bilateral medial facetectomies and foraminotomies L1-L2 L2-L3. #4 posterior spinal fusion L2-3. #5 placement posterior instrumentation L2-S1. #6 interbody fusion L2-L3. #7 placement peek cage 11 x 22 mm at L2-L3. #8 placement locally harvested morselized autograft in the posterior gutters. #9 placement infuse collagen sponge, master graft in the posterior lateral gutters and I factor interbody space. Surgeon Randal Ramirez, Director Field Services Sindi Bianchi Estimated Blood Loss 200 Findings See Below Patient is 5 foot 1 inches tall weighing over 70 kg with a BMI in excess of 32. The patient body mass did contribute to significant technical difficulty requiring her deepest retractors longus instruments in order to perform her procedure. This at least 50% increased operative time. Specimens None Indications This is a 76-year-old female who presents with above-mentioned diagnosis with marked decline in status progressive neuro deficit she is here for surgical invention. Description of Procedure Patient was met with identified informed consent obtained. Patient was then taken to the operative suite underwent intubation placed in a prone position on the Spenser table on top of the Cyrus frame. All bony prominences well-padded eyes inspected to ensure no external pressure placed upon the. This point the lumbar spine was prepped and draped no sterile fashion. Sharp dissection with the assistance of Bovie cautery performed down to and exposing the lamina transverse processes of L2 and instrumentation at L3-L4-L5 and S1 levels bilaterally. Then proceeded to remove the hardware bilaterally explore the fusion mass noting it to be mature and intact. Then performed a complete laminectomy of L2 partial laminectomy of L1 including bilateral medial facetectomies and foraminotomies addressing all neural compression. Also identified massive discrimination at the L2-L3 level with caudal migration favoring the right side. This was removed in's entirety. Pedicle screws then placed in L2-L3-L4 and S1 levels bilaterally with assistance of fluoroscopy and proper sized gage placed. By way of a transfemoral approach on the right complete discectomy of L2-L3 was performed endplates curetted to subcortical bleeding bone and a 11 x 22 mm peek cage with I factor tapped in position. The rods then compressed locked into final position bilaterally. The transverse processes of L2 and L3 burred to subcortical bleeding bone. Infuse collagen sponge master graft local graft was placed in the posterior gutters. 15 round HAFSA drain inserted. The incision was then closed with 1 Vicryl the fascia 2-0 Vicryl subcutaneously and 4 Monocryl for final skin closure. Steri-Strip sterile dressings placed. Patient waken taken PACU stable condition. Please note spinal cord monitoring was utilized at the procedure no changes noted. Lastly Sindi Bianchi was present at the entire surgery involved the patient positioning complex portions of the surgery and final skin closure. I attest to the content of the Intraoperative Record and any orders documented therein. Any exceptions are noted below.
[2021-12-14] MEDS: fentaNYL citrate 100 MCG/2 ML VIAL IV PRN ×4 (14:54→15:08)
--- NOTE | 2021-12-14 15:16 | Fluoroscopy Report ---
FL lumbar spine 2-3V CLINICAL HISTORY: L2-L3 DECOMPRESSION L2-S1 FUSION COMPARISON STUDY: 01/16/2020 FLUOROSCOPY TIME: 18 second. FLUOROSCOPIC IMAGES: 1 FINDINGS: Lateral C-arm image was obtained with interval removal of a screw from L5. Disc spacer is s een at L4-5. Screws are present at L3, L4 and S1. IMPRESSION: Status post removal of screws at L5. ACT 112: Negative or not required by law. Electronically signed by: Brenden Archer M.D. 12/14/2021 3:15 PM
--- NOTE | 2021-12-14 15:16 | Anesthesiology Progress Note ---
Date of Service December 14, 2021 Anesthesia Post Procedure Vital Signs Vital Signs: Temp Pulse Pulse Resp BP Pulse Ox 12/14/21 15:05 73 16 105/76 94 12/14/21 14:55 76 16 112/79 100 12/14/21 14:45 77 16 114/78 97 12/14/21 14:39 36.9 C 77 16 149/82 H 94 12/14/21 11:35 37.5 C 82 18 156/86 H 94 12/14/21 07:19 36.8 C 74 18 125/76 93 12/13/21 23:36 37 C 81 16 139/74 93 12/13/21 16:39 36.7 C 76 16 143/77 H 95 12/13/21 16:10 75 18 163/87 H 95 12/13/21 16:06 88 L Pain Intensity Right Leg: Pain Intensity: 10 Transfer of Care Handoff Completed per policy Notes Mental Status: alert / awake / arousable Patient Amnestic to Procedure: Yes Nausea / Vomiting: adequately controlled Pain: adequately controlled Airway Patency, RR, SpO2: stable & adequate BP & HR: stable & adequate Hydration State: stable & adequate Anesthetic Complications: no major complications apparent
[2021-12-14] MEDS ORDERED: ALUMINUM/MAGNESIUM SUSP 30 ML UDC PO PRN (16:06)
[2021-12-14] MEDS ORDERED: ONDANSETRON INJ 2 MG/ML 2 ML VIAL IV PRN (16:06)
[2021-12-14] MEDS ORDERED: DO NOT ADMINISTER PNEUMOCOCCAL VACCINE PRN (16:06)
[2021-12-14] MEDS ORDERED: oxyCODONE HCL IR 5 MG TAB (IMMEDIATE RELEASE) PO PRN (16:06)
[2021-12-14] MEDS ORDERED: ACETAMINOPHEN 500 MG TAB PO PRN (16:06)
[2021-12-14] MEDS ORDERED: ACETAMINOPHEN 1,000 MG/100 ML VIAL IV PRN (16:06)
[2021-12-14] MEDS ORDERED: LORazepam 0.5 MG TAB PO PRN (16:06)
[2021-12-14] MEDS ORDERED: bisacodyL 10 MG SUPP PR PRN (16:06)
[2021-12-14] MEDS ORDERED: LORazepam 0.5 MG/1 ML VIAL IV PRN (16:06)
[2021-12-14] MEDS ORDERED: ONDANSETRON 4 MG OD TAB PO PRN (16:06)
[2021-12-14] MEDS ORDERED: hydrOXYzine HCl 25 MG TAB PO PRN (16:06)
[2021-12-14] MEDS ORDERED: MAGNESIUM HYDROXIDE SUSP 30 ML UDC PO PRN (16:06)
[2021-12-14] MEDS ORDERED: HYDROmorphone INJ 0.5 MG/0.5 ML SYR IV PRN (16:06)
[2021-12-14] MEDS ORDERED: METOCLOPRAMIDE HCL INJ 5 MG/ML 2 ML VIAL IV PRN (16:06)
[2021-12-14] MEDS ORDERED: SOD PHOSPHATE/SOD BIPHOSPHATE ENEMA 132 ML BTL PR PRN (16:06)
[2021-12-14] MEDS ORDERED: FAMOTIDINE 20 MG TAB PO PRN (16:06)
[2021-12-14] MEDS ORDERED: PROMETHAZINE HCL 12.5 MG in SODIUM CHLORIDE 0.9% 50 ML IV PRN (16:06)
[2021-12-14] MEDS ORDERED: NALOXONE HCL 0.4 MG/1 ML VIAL/CARP IV PRN (16:06)
[2021-12-14] MEDS ORDERED: DO NOT ADMINISTER FLU VACCINE PRN (16:06)
[2021-12-14] MEDS ORDERED: diphenhydrAMINE Capsule 25 MG CAP PO PRN (16:06)
[2021-12-14] MEDS: BACLOFEN 20 MG TAB PO SCH (20:11)
[2021-12-14] MEDS: CITALOPRAM 20 MG TAB PO SCH (20:11)
[2021-12-14] MEDS: DOCUSATE SODIUM/SENNA 50/8.6MG TAB PO SCH (21:43)
[2021-12-14] MEDS: ceFAZolin 2000MG 2,000 MG/15 ML SYR IV SCH (21:43)
[2021-12-15] MEDS: LACTATED RINGER'S 1,000 ML IV SCH ×2 (03:08→15:05)
[2021-12-15] MEDS: ceFAZolin 2000MG 2,000 MG/15 ML SYR IV SCH (05:23)
[2021-12-15] MEDS: POLYETHYLENE (MIRALAX) 17 GM PACK PO SCH ×4 (05:23→23:06)
[2021-12-15] MEDS: LEVOTHYROXINE SODIUM 88 MCG TABLET PO SCH (05:24)
[2021-12-15] MEDS: traMADol HCL 50 MG TABLET PO PRN (08:44)
[2021-12-15] MEDS: ATORVASTATIN 20 MG TAB PO SCH (08:46)
[2021-12-15] MEDS: amLODIPine BESYLATE 5 MG TAB PO SCH (08:46)
[2021-12-15] MEDS: FENOFIBRATE NANOCRYSTALLIZED 145 MG TABLET PO SCH (08:46)
[2021-12-15] MEDS: lisinopril 40 MG TAB PO SCH (08:47)
[2021-12-15] MEDS: PANTOprazole 40 MG TAB PO SCH (08:47)
[2021-12-15 08:49] LABS: Hematocrit (blood only) 33.3 % (37-47); Hemoglobin 10.6 g/dL (12.0-16.0); Immature Granulocytes # (auto) 0.04 K/uL (0.00-0.02); Immature Granulocytes % (auto) 0.3 %; Lymphocytes # (auto) 3.33 K/uL (1.2-3.4); Lymphocytes % (auto) 21.2 %; Mean Corpuscular Hemoglobin 27.9 pg (25-34); Mean Corpuscular Hgb Conc 31.8 g/dL (32-36); Mean Corpuscular Volume 87.6 fL (80-100); Mean Platelet Volume 10.9 fL (7.4-10.4); Monocytes # (auto) 2.08 K/uL (0.11-0.59); Monocytes % (auto) 13.2 %; Neutrophils # (auto) 10.25 K/uL (1.4-6.5); Neutrophils % (auto) 65.3 %; Platelet Count 213 K/uL (130-400); RDW Standard Deviation 51.5 fL (36.4-46.3)
--- NOTE | 2021-12-15 09:11 | Orthopedic Progress Note ---
Date of Service December 15, 2021 Assessment & Plan (1) Spinal stenosis, lumbar region with neurogenic claudication: Plan: At this time we will continue physical therapy monitor her HAFSA operatively discharge home in next few days. Admission and Anticipated Discharge Date Admission Date: December 14, 2021 Subjective Back pain is controlled leg pain markedly improved Physical Exam Physical Exam: Patient has good strength testing. Appears comfortable. Results & Data ([facility]) Vital Signs (Past 12 Hours) Vital Signs Temp Pulse Resp BP Pulse Ox 12/15/21 07:15 36.7 C 80 18 136/72 94 12/15/21 03:41 36.6 C 77 17 114/70 95 12/14/21 23:00 37.1 C 77 18 126/70 96
[2021-12-15 09:29] LABS: BUN Creatinine Ratio 33.8 (10-20); Calcium 8.3 mg/dl (8.5-10.1); Creatinine Clr Calc Pharmacy 34.6 ml/min; Est GFR (African American) 45.2 ml/min; Potassium 4.3 mmol/L (3.5-5.1)
[2021-12-15] MEDS: dexAMETHasone 6 MG in SYRINGE 0 ML IV SCH (11:12)
[2021-12-15] MEDS: PREGABALIN 75 MG CAP PO SCH ×3 (14:53→20:21)
[2021-12-15] MEDS: BACLOFEN 20 MG TAB PO SCH (20:22)
[2021-12-15] MEDS: DOCUSATE SODIUM/SENNA 50/8.6MG TAB PO SCH (20:22)
[2021-12-15] MEDS: CITALOPRAM 20 MG TAB PO SCH (20:22)
[2021-12-16] MEDS: traMADol HCL 50 MG TABLET PO PRN ×2 (02:11→08:28)
[2021-12-16] MEDS: LEVOTHYROXINE SODIUM 88 MCG TABLET PO SCH (06:24)
[2021-12-16] MEDS: POLYETHYLENE (MIRALAX) 17 GM PACK PO SCH ×3 (06:24→23:08)
[2021-12-16] MEDS: amLODIPine BESYLATE 5 MG TAB PO SCH (08:30)
[2021-12-16] MEDS: ATORVASTATIN 20 MG TAB PO SCH (08:30)
[2021-12-16] MEDS: FENOFIBRATE NANOCRYSTALLIZED 145 MG TABLET PO SCH (08:31)
[2021-12-16] MEDS: lisinopril 40 MG TAB PO SCH (08:31)
[2021-12-16] MEDS: PANTOprazole 40 MG TAB PO SCH (08:32)
[2021-12-16] MEDS: dexAMETHasone 6 MG in SYRINGE 0 ML IV SCH (08:38)
--- NOTE | 2021-12-16 10:16 | Orthopedic Progress Note ---
Date of Service December 16, 2021 Assessment & Plan (1) Spinal stenosis, lumbar region with neurogenic claudication: Plan: This time we will continue physical therapy monitor HAFSA output possible discharge home tomorrow. Admission and Anticipated Discharge Date Admission Date: December 14, 2021 Subjective Back pain controlled leg pain markedly improved Physical Exam Physical Exam: Patient is ambulating halls. Has excellent strength testing. Appears comfortable. Results & Data ([facility]) Vital Signs (Past 12 Hours) Vital Signs Temp Pulse Pulse Resp BP Pulse Ox 12/16/21 07:30 36.5 C 82 16 126/70 97 12/15/21 23:01 37.0 C 75 18 126/69 97
[2021-12-16] MEDS: PREGABALIN 75 MG CAP PO SCH ×2 (12:37→21:12)
[2021-12-16] MEDS: CITALOPRAM 20 MG TAB PO SCH (21:12)
[2021-12-16] MEDS: DOCUSATE SODIUM/SENNA 50/8.6MG TAB PO SCH (21:13)
[2021-12-16] MEDS: BACLOFEN 20 MG TAB PO SCH (21:14)
[2021-12-16 23:23] VITALS: TEMP 99
[2021-12-17] MEDS: LEVOTHYROXINE SODIUM 88 MCG TABLET PO SCH (05:35)
[2021-12-17] MEDS: traMADol HCL 50 MG TABLET PO PRN (05:41)
[2021-12-17] MEDS: POLYETHYLENE (MIRALAX) 17 GM PACK PO SCH (05:41)
[2021-12-17 08:27] VITALS: PULSE 77; O2SAT 90
--- NOTE | 2021-12-17 08:41 | Discharge Summary ---
Date of Service December 17, 2021 Admission HPI Per Admitting Provider This is a very pleasant 76-year-old female who presents to the emergency room today with an 8-week history of lower back pain rating down her right lower extremity. She was initially scheduled for surgery with Dr. Ramirez but this was canceled due to COVID, bed availability. She presented to the ER 3 days ago for similar complaints. She presents today with worsening lower back pain rating down the right lower extremity with associated numbness and weakness. She had a prior surgery by Dr. Ramirez about 2 years ago without complication. For the past several weeks she has been alternating between a walker and a cane for ambulation. She has been requiring oxycodone at home for pain control. Denies bowel or bladder changes. Left lower extremity is asymptomatic. Principal Diagnosis Lumbar spinal stenosis with neurogenic claudication Discharge Data Allergies Allergy/AdvReac Type Severity Reaction Status Date / Time adhesive Allergy Unknown BANDAIDS-MAKES Verified 12/13/21 14:05 SKIN SORE RED hydrochlorothiazide AdvReac Unknown DECREASED Verified 12/13/21 14:05 KIDNEY FUNCTION PER PCP NOTE Consultations 12/13/21 13:39 ED Decision to Admit Stat 12/13/21 14:41 Consult Anesthesiology Routine Procedures Performed Operation Date: 12/14/21 07:00 Actual Procedures p L2-L3 Decompression, Hardware Removal L3-S1(Not Applicable) - Randal Ramirez DO Ordered Studies 12/14/21 [facility] lumbar spine 2-3V Routine Hospital Course (1) Spinal stenosis, lumbar region with neurogenic claudication: Patient is admitted with severe back and leg pain underwent surgery tolerated procedure well was taken to orthopedic for postoperative. Postop day 1 she was up and ambulating progressive postop #2 postop day #3 pain was well controlled HAFSA drain still significant. Subsequently elected to send her home with a HAFSA drain she will follow-up in the office on Sunday or Sunday for drain removal. Remaining of discharge orders can be found the chart for further review. Total Time Total Time Spent Total Time Spent (In Minutes): 20 minutes Discharge Plan Discharge Items Patient Disposition: Home - Self-Care Reason For Visit: WORSENING LBP;RLE RADICULOPATHY Discharge Diagnosis: Lumbar disc condition with radiculopathy Condition on Discharge: Good Activity: As commented below Non-emergency contact: Primary Care Provider Call non-emergency contact if: you have any medication questions Follow-up/Referrals: Gaurang Leslie PA-C [Primary Care Provider] - Diet: Regular Addtl Attending Provider Instructions: ACTIVITY RECOMMENDATIONS: SELF CARE INSTRUCTIONS AFTER THORACIC/LUMBAR FUSIONS 1. You may walk to your tolerance. It is good exercise for your legs and back. Expect some back and intermittent leg aches and pains. 2. You may perform "counter-top" level activities (make a sandwich, fernanda with a project, etc.). 3. No bending or lifting of more than 10 pounds or back twisting of any nature (roll like a log when turning in bed). 4. You may ride in a car for 20-30 minutes at a time. No driving until after your first visit with your doctor. 5. Frequent changes of position and restricting sitting to 30 minutes at a time will help limit the amount of back spasms and stiffness you may experience. 6. You may discontinue the use of ambulatory aids (cane, crutches, etc.) once your strength and confidence allow. 7. You may project management intern the shower and let water strike your incision when you arrive home at least once daily. Do not take a tub bath, sit in a hot tub or go into a swimming pool until after your first recheck in the office. SPECIAL CARE INSTRUCTIONS: VERY IMPORTANT TO READ AND REVIEW A. Your surgical incision has been closed with a cosmetic suture under the skin that will dissolve in about 6 weeks. In 14 days, you can use a pair of clean scissors and cut the suture that is left outside of the skin at the ends of your incision. 1. The small skin tapes can be removed 7 days after surgery if they have not fallen off by that point. 2. You may keep the wound open to air as much as possible to promote healing after post-op day number 5 unless told otherwise by your doctor. 3. If you think the wound looks like it is becoming infected (redness or worsening drainage) and/or you are experiencing fever, chill or worsening back pain and muscle spasms, contact the office so that we may evaluate you as soon as possible. B. Complications are uncommon, but please contact us if you have any signs or symptoms of: 1. wound infection (fever higher than 102.5 degrees F, redness, separation of wound, drainage, or increasing pain from the incision) 2. blood clots in legs (pain, swelling, redness and warmth in legs) 3. urinary tract infection (fever higher than 102.5 degrees F, burning upon urination or increased frequency of urination) 4. nerve problems (inability to walk on your toes or heels, numbness, loss of bowel or bladder control) 5. any other symptoms that concern you C. Please call the office at if you have any concerns or questions about your operation or recovery. D. No smoking! Smoking drastically decreases the chance of a solid fusion. E. Do not take any anti-inflammatory medications (Indocin, Advil, Motrin, Aspirin, Naprosyn, etc.) as these may inhibit the chance of a solid fusion. Tylenol is okay to take for pain. MANAGING PAIN AFTER SPINAL SURGERY 1. Narcotic medication is intended for short-term use and will be provided for surgical pain. Surgical pain usually lasts for a period of 4-6 weeks. Narcotic medication includes Percocet, Vicodin, Darvocet, Tylenol #3 or Lortab. 2. Longer-term pain is more appropriately treated with non-narcotic medication such as Tylenol ES. 3. Muscle spasm is not appropriately treated with narcotics. Muscle relaxers such as Soma, Flexeril or Skelaxin can be used along with Tylenol ES. 4. Remember that we all live with some "aches and pains". This is not unusual or uncommon after an injury or as we get older. a. Back pain is expected and may include muscle spasms for 4 to 6 weeks after surgery. The pain should gradually improve. If the pain worsens for no apparent reason, please contact the office. b. Intermittent leg pain may also be experienced and should not be concerned about unless it worsens for no apparent reason. If so, please contact the office. 5. We will provide appropriate medication within the normal guidelines of their prescribed use. We will also be very cautious and aware of potential abuse and extended duration of patients' medication needs. a. Pain medications are for your comfort and to assist with sleep and rest so that the tissue can heal. They are not provided in order to return to normal activity and should not be used through the day. To do so or worsening pain at night can result from ongoing tissue damage and development of tolerance to the prescribed medicine. 6. Please allow 2-3 days to process refills. Prescriptions will not be mailed but must be picked up at the office. FOLLOW UP VISIT: Keep your scheduled follow-up appointment. Any questions, please call the office at . Pending Studies at Discharge: No Stand-Alone Forms: My [facility], Smoking Cessation Medications and DC Order Prescriptions: New tramadol 50 mg tablet 50 mg PO Q6H PRN (Reason: pain, moderate) Qty: 30 RF: 0 oxycodone 5 mg tablet 5 mg PO Q6H PRN (Reason: pain, severe) Qty: 30 RF: 0 Continued multivitamin Tablet 1 tab PO QAM RF: 0 omeprazole 40 mg Capsule,Delayed Release(Dr/Ec) 40 mg PO QAM RF: 0 amlodipine 10 mg Tablet 10 mg PO QAM RF: 0 lisinopril 40 mg Tablet 40 mg PO QAM RF: 0 fenofibrate nanocrystallized [Tricor] 145 mg Tablet 145 mg PO QAM RF: 0 levothyroxine 88 mcg Capsule 88 mcg PO QAM RF: 0 melatonin 5 mg Capsule 5 mg PO HS PRN (Reason: Insomnia) RF: 0 citalopram 20 mg tablet 20 mg PO HS RF: 0 lidocaine HCl 4 % (40 mg/mL) solution 1 applic PO UD RF: 0 nystatin-triamcinolone 100,000-0.1 unit/g-% cream 1 applic TOPICAL DAILY RF: 0 atorvastatin 20 mg Tablet 20 mg PO QAM RF: 0 acetaminophen 500 mg Tablet 1,000 mg PO Q6H PRN (Reason: Pain) RF: 0 baclofen 20 mg Tablet 20 mg PO HS RF: 0 furosemide 20 mg Tablet 20 mg PO DAILY PRN (Reason: LEG SWELLING) RF: 0 docusate sodium [Stool Softener] 100 mg Tablet 100 mg PO QAM PRN (Reason: Constipation) RF: 0 pregabalin 75 mg Capsule 75 mg PO BID RF: 0 oxycodone-acetaminophen [Percocet] 5-325 mg tablet 1 tab PO Q6H PRN (Reason: pain) Qty: 20 RF: 0 Discontinued acetaminophen-codeine 300-30 mg tablet 1 tab PO UD PRN (Reason: Pain) RF: 0 meloxicam 7.5 mg Tablet 7.5 mg PO HS RF: 0 Discharge Orders: Discharge Order (Routine); Ordered 12/17/21 Ordered By: Randal Ramirez Admission Data Admit Date/Time: 12/14/21 14:23 Attending Provider: Randal Ramirez Admit Provider: Randal Ramirez Primary Care Provider: Gaurang Leslie Other Providers: Randal Ramirez ; Rubi Armstrong ; Regina Reid ; Hyacinth Lockhart ; Bhumi Wang ; Braxton Sawyer ; Haroldo Vazquez ; Arnel Wilcox ; Víctor Olsen ; Lisa Olsen ; Ulises Richmond ; Raissa Espinoza ; Oneil T[place] ; Bryan Galeas ; Yovani Russell ; Gaurang Ziegler ; Guerline Hdez ; Alvarado Guerrero ; Ana Dougherty ; Merary Guerrero ; Librado Marrero ; Alicja Vera ; Damon Thomason ; Lizeth Hills ; Nara Hendricks ; Alicja Akins. ; Tonja Hidalgo ; Eddie Downs ; Kari Francois A ; Arlene Keating A ; Caroline Malcolm ; Gilda Moreno ; Ralph Moreon V ; Pedro Llamas ; Regina Armas ; Brenden Kirk ; Caity Sim ; Alma Delia Jeffries ; Ralph Agee ; Christian Hdez ; Shawn Archer ; Rosalind Danielle ; Dayami Charles ; Ralph Nayak ; Caroline Clemons ; Zaid Clark ; Cortez Ziegler ; Kasia Mcdonough ; Paddy Mesa ; Madonna Roblero ; Phan Ivy ; Brayden Nelson ; Paddy Mcqueen ; Braxton Vasquez Jr ; Tanisha Wynn
[2021-12-17] MEDS: dexAMETHasone 6 MG in SYRINGE 0 ML IV SCH (08:53)
[2021-12-17] MEDS: ATORVASTATIN 20 MG TAB PO SCH (08:57)
[2021-12-17] MEDS: FENOFIBRATE NANOCRYSTALLIZED 145 MG TABLET PO SCH (08:57)
[2021-12-17] MEDS: PANTOprazole 40 MG TAB PO SCH (08:57)
[2021-12-17] MEDS: PREGABALIN 75 MG CAP PO SCH (08:57)
[2021-12-17] MEDS: amLODIPine BESYLATE 5 MG TAB PO SCH (08:57)
[2021-12-17] MEDS: lisinopril 40 MG TAB PO SCH (08:57)
[2021-12-17 11:28] VITALS: BP 136/72
== END 2021-12-17 12:26 | disposition home or self-care (01) | DRG 455 ==
LOC: ED 12:07 → 3W 12:07
DX: Z68.32 Body mass index [BMI] 32.0-32.9, adult; K21.9 Gastro-esophageal reflux disease without esophagitis; Z98.1 Arthrodesis status; Z88.8 Allergy status to other drugs, medicaments and biological substances; E78.5 Hyperlipidemia, unspecified; Z83.3 Family history of diabetes mellitus; M48.062 Spinal stenosis, lumbar region with neurogenic claudication; I10 Essential (primary) hypertension; R73.03 Prediabetes

== ENCOUNTER 2024-07-01 05:47 | Inpatient (IN) ==
--- NOTE | 2024-06-19 14:10 | PAT Medication Instructions ---
Medication Instructions Date of Service June 19, 2024 Home Medications Medication Instructions Recorded olmesartan 40 mg tablet 40 mg PO DAILY #90 tabs 12/28/23 hydrochlorothiazide 25 mg tablet 25 mg PO DAILY #90 tabs 02/08/24 amlodipine 10 mg tablet 10 mg PO QAM #90 tabs 04/25/24 Medication List: levothyroxine 88 mcg capsule 88 mcg PO QAM multivitamin 1 tab PO QAM omeprazole 40 mg capsule,delayed release 40 mg PO QAM melatonin 5 mg capsule 10 mg PO HS PRN Insomnia citalopram 20 mg tablet 20 mg PO HS acetaminophen 500 mg tablet 1,000 mg PO Q6H PRN Pain docusate sodium 100 mg tablet (Stool Softener) 100 mg PO QAM PRN Constipation lidocaine HCl 4 % (40 mg/mL) mucosal solution 1 applic PO UD nystatin-triamcinolone 100,000 unit/g-0.1 % topical cream 1 applic topical DAILY aspirin 81 mg tablet,delayed release (Adult Aspirin Regimen) 81 mg PO DAILY olmesartan 40 mg tablet 40 mg PO DAILY omega 0-vcb-cjd-fish oil 300 mg-1,000 mg capsule,delayed release (Fish Oil) 1 cap PO DAILY carvedilol 12.5 mg tablet 25 mg PO BID hydrochlorothiazide 25 mg tablet 25 mg PO DAILY amlodipine 10 mg tablet 10 mg PO QAM atorvastatin 40 mg tablet 40 mg PO QAM fenofibrate nanocrystallized 48 mg tablet (Tricor) 48 mg PO QAM MEDICATION INSTRUCTIONS: Continue as directed nystatin-triamcinolone 100,000 unit/g-0.1 % topical cream 1 applic topical DAILY (do not apply after bathing prior to surgery) ASK your prescriber and surgeon aspirin 81 mg tablet,delayed release (Adult Aspirin Regimen) 81 mg PO DAILY STOP taking 2 weeks before surgery omega 7-rfq-goh-fish oil 300 mg-1,000 mg capsule,delayed release (Fish Oil) 1 cap PO DAILY STOP taking 24 hours before surgery fenofibrate nanocrystallized 48 mg tablet (Tricor) 48 mg PO QAM DO NOT take the morning of surgery hydrochlorothiazide 25 mg tablet 25 mg PO DAILY multivitamin 1 tab PO QAM olmesartan 40 mg tablet 40 mg PO DAILY docusate sodium 100 mg tablet (Stool Softener) 100 mg PO QAM PRN Constipation lidocaine HCl 4 % (40 mg/mL) mucosal solution 1 applic PO UD Take morning of surgery With a small sip of water, OTHERWISE NOTHING TO EAT OR DRINK AFTER MIDNIGHT: amlodipine 10 mg tablet 10 mg PO QAM omeprazole 40 mg capsule,delayed release 40 mg PO QAM levothyroxine 88 mcg capsule 88 mcg PO QAM atorvastatin 40 mg tablet 40 mg PO QAM carvedilol 12.5 mg tablet 25 mg PO BID acetaminophen 500 mg tablet 1,000 mg PO Q6H PRN Pain Take evening before surgery melatonin 5 mg capsule 10 mg PO HS PRN Insomnia citalopram 20 mg tablet 20 mg PO HS carvedilol 12.5 mg tablet 25 mg PO BID acetaminophen 500 mg tablet 1,000 mg PO Q6H PRN Pain Other Notes If you have any questions please call us at [phone] or [phone] or [phone] or [phone]
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
--- OUTSIDE RECORDS SUMMARY | 2024-07-01 05:53 | External Medical Summary | Summary of Care ---
Author Name Unknown Organization [facility] Address [address] [place] [address] Phone [phone] Care Team Providers Care Endbander Name Role Phone Gaurang Leslie PA-C Primary Care Provider [phone] Encounter Details Date Type Department Care Team (Latest Contact Info) Description 06/27/2024 12:36 PM EDT - 06/27/2024 11:59 PM EDT Hospital Encounter Cardiac Studies, [address] [place] [address] Discharge Disposition: Home - Self Care Allergies Active Allergy Reactions Criticality Noted Date Comments Adhesive Tape 08/01/2007 Band-Aides Corticosteroids Other (Please comment) 03/16/2017 Makes her hyper, she can 't sleep, gives her a "violent headache". The patient has tolerated prednisone in the past Hydrochlorothiazide 08/23/2011 decrease GFR documented as of this encounter (statuses as of 06/28/2024) Medications Medication Sig Dispensed Refills Start Date End Date Status docusate sodium (COLACE) 100 MG Capsule Take 1 Cap by mouth 2 times a day as needed for Constipation. 30 Cap 06/28/2017 Active [place]-3 Fatty Acids (FISH OIL) 1000 MG Capsule Take 1 Capsule by mouth in the morning. Active Multiple Vitamins-Minerals (MULTIVITAMIN ADULT) TABS Take by mouth. Active Vitamin E 100 units Tablet Take 1 Tablet by mouth in the morning. Active Melatonin 5 MG Tablet Take 1 Tablet by mouth at bedtime. Active D3 10 MCG (400 UNIT) Oral Tablet Chewable (Cholecalciferol) Take by mouth . Ac tive Spacer/Aero-Holding Chambers DeviceIndications:Ac [place] bronchitis with bronchospasm Use with inhaler. 1 Each 09/10/2023 Active amLODIPine Besylate 10 MG Oral Tablet (Norvasc) TAKE 1 TABLET BY MOUTH EVERY DAY 90 Tablet 3 11/05/2023 Active Citalopram Hydrobromide 20 MG Oral Tablet (CeleXA)Indications: Depression TAKE 1 TABLET BY MOUTH EVERY DAY 90 Tablet 3 11/05/2023 Active Aspirin 81 MG Oral Tablet Chewable Take 1 Tablet by mouth in the morning. 30 Tablet 11/12/2023 Active Atorvastatin Calcium 40 MG Oral Tablet (Lipitor) TAKE 1 TABLET BY MOUTH EVERY DAY 90 Tablet 3 11/20/2023 Active Acetaminophen 325 MG Oral Tablet (Tylenol) Take 2 Tablets by mouth every 6 hours as needed for Pain, Mild or Fever >38C(100.5F). 30 Tablet 11/23/2023 Active oxygen IN GAS Use 2 L/min(Oxygen) as directed every night at bedtime. Active Olmesartan Medoxomil 40 MG Oral Tablet (Benicar) Take 1 Tablet by mouth in the morning. 03/25/2024 Active Fenofibrate 48 MG Oral Tablet (Tricor)Indications: Dyslipidemia, goal LDL below 100 TAKE 1 TABLET BY MOUTH EVERY DAY IN THE MORNING 90 Tablet 1 04/15/2024 Active Omeprazole 40 MG Oral Capsule Delayed Release (PriLOSEC)Indication s:Esophageal reflux TAKE 1 CAPSULE BY MOUTH ONCE A DAY 1 HOUR BEFORE THE FIRST MEAL OF THE DAY 90 Capsule 1 04/15/2024 Active Carvedilol 25 MG Oral Tablet (Coreg) TAKE 1 TABLET BY MOUTH IN THE MORNING AND 1 TABLET BEFORE BEDTIME. WITH FOOD. 180 Tablet 3 04/15/2024 Active hydroCHLOROthiazide 25 MG Oral Tablet (Hydrodiuril) Take 1 Tablet by mouth in the morning. Active tiZANidine HCl 4 MG Oral Tablet (Zanaflex)Indication s:Back muscle spasm Take 1 Tablet by mouth every 8 hours as needed for Muscle spasms. 30 Tablet 05/28/2024 Active Levothyroxine Sodium 88 MCG Oral Tablet (Levoxyl)Indications :Hypothyroidism TAKE 1 TABLET BY MOUTH EVERY DAY AT LEAST 30 MIN BEFORE BREAKFAST OR OTHER MEDICATION 90 Tablet 3 06/10/2024 Active documented as of this encounter (statuses as of 06/28/2024) Active Problems Problem Noted Date Diagnosed Date Cerebral palsy 11/30/2023 Thoracic aortic ectasia 11/30/2023 Atherosclerosis of [place] ronary artery without angina pectoris 11/30/2023 Nocturnal hypoxemia 11/23/2023 Hypertensive heart disease w ith congestive heart failure with preserved left ventricular function 05/14/2023 DM type 2 causing CKD stage 3 08/13/2020 Migraine with aura and witho ut status migrainosus, not intractable 01/26/2020 Mild single current episode of major depressive disorder 08/02/2018 History of nonmelanoma skin cancer 11/07/2017 Polypharmacy 06/28/2017 History of colonic polyps 05/14/2017 Overview: ICD-10 update of inactive term Gastroesophageal reflux disease without esophagi tis 05/22/2011 Need for prophylactic hormon e replacement therapy (postmenopausal) 05/22/2011 HTN, goal below 140/90 07/27/2010 ADVANCE DIRECTIVE INFORMATION 05/26/2010 Overview: Yes, Patient instructed to provide copy of advance directive for provider to review and to be scanned into Electronic Medical Record DYSLIPIDEMIA, GOAL LDL BELOW 100 11/15/2009 Overview: Per Lipid Taxonomy. Localized, primary osteoarthritis of hand 2006 LUMB-LUMBOSAC DISC DEGEN 11/11/2002 Hypothyroidism 06/23/2002 documented as of this encounter (statuses as of 06/28/2024) Resolved Problems Problem Noted Date Diagnosed Date Resolved Date Migraine without status migr ainosus, not intractable 11/30/2023 06/18/2024 Other headache syndrome 11/22/2023 12/2 07/2023 Hypertensive emergency 11/10/202311/30 Double vision 11/09/2023 11/23/2023 Type 2 diabetes mellitus wit h stage 2 chronic kidney disease and hypertension 12/07/2021 03/10/20 Hypertensive kidney disease with stage 3 chronic kidney disease 08/04/2020 09/11/2022 Kidney disease, chronic, sta ge III (GFR 30-59 ml/min) 07/05/2020 09/09/2020 Overview: Per CKD protocol Prediabetes 09/02/2018 09/09/2020 Overview: Per Prediabetes protocol #1 Stage 3 chronic kidney disease 08/02/2018 01/22/2019 Overview: ICD-10 update of inactive term Hypertensive kidney disease with chronic kidney disease stage III 08/02/2018 01/22/2019 Personal history of skin cancer 07/09/2017 11/07/2017 Confusion with non-focal neuro exam 06/28/2017 07/09/2017 Dehydration 06/28/2017 07/09/2017 Hypertension 05/14/2017 11/30/2023 Malignant neoplasm of skin of parts of face 07/27/2010 11/07/2017 Kidney disease, chronic, sta ge III (GFR 30-59 ml/min) 06/25/2007 02/11/2015 Cramp in limb 06/25/2007 05/03/2017 s/p bcc left clavicle;173.5 02/08/2006 11/07/2017 BENIGN NEOPLASM LG BOWEL 12/26/2005 Overview: On colonoscopy- 200102/07/2010, normal exam, 5 year f/u advised Mixed dyslipidemia 05/12/2005 12/200 9 Overview: Per Lipid Taxonomy. Depression 05/12/2005 10/25/2018 Headache 05/11/2005 05/03/2017 Overview: chronic ICD-10 update of inactive term BACKACHE NOS 06/23/2002 05/14/2017 documented as of this encounter (statuses as of 06/28/2024) Immunizations Name Administration Dates Next Due COVID-19 mRNA, LNP-s, No Pre serve, 2-Dose Series (Moderna) 04/03/2022,01/20/2021,12/23/2020 COVID-19, mRNA, LNP-s, PF, B ooster, 100mcg/0.5mg (Moderna) 10/17/2021 Covid-19, Mrna, Lnp-s, Pf, B ivalent, 30 Mcg, IM, 12 yrs and above (Pfizer) 09/26/2022 Pneumococcal Conjugate Vacc, 13 Valent (Prevnar) 05/10/2016 Pneumococcal Polysaccharide PPV23 (Pneumovax) 03/30/2015,10/21/2008 Seasonal Influenza, PF, 6 M & above, IM , (FluLaval or Fluzone) 08/13/2020,08/02/2018,09/04/2017 Seasonal Influenza, Quadriva lent Hd (Fluzone Hd) 09/24/2023,09/05/2022,09/01/2021 Seasonal Influenza, Quadriva lent, No Preserve, IM 08/28/2016,09/11/2015 Seasonal Influenza, Split, I IV3, With Preserve, Inj 08/29/2014,08/16/2013,08/01/2012,11/29(Deferred: Patient Refused),10/21/2008 Seasonal Influenza, Trivalen t, Adjuvanted, 65+ yrs 09/10/2019 TD, Preservative Free 10/09/2019 TDAP, Age 7 and older, IM (Adacel) 07/27/2009 Varicella Zoster Vaccine (Adult) 09/09/2013 Zoster Vaccine Recombinant (Shingrix) 08/06/2020 ,05/22/2020 documented as of this encounter Social History Tobacco Use Types Packs/Day Years Used Date Smoking Tobacco: Never Smokeless Tobacco: Never Alcohol Use Standard Drinks/Week Comments No 0 (1 standard drink = 0.6 oz pur e alcohol) rare PHQ-2 Answer Date Recorded PHQ Adult Total Score 0 12/27/2023 Hunger Vital Sign Answer Date Recorded Within the past 12 months, y ou worried that your food would run out before you got the money to buy more. Never true 12/27/19 24 Within the past 12 months, t he food you bought just didn't last and you didn't have money to get more. Never true 12/27/2023 Sex and Gender Information Value Date Recorded Sex Assigned at Female 03/07/2019 2:04 PM EDT Gender Identity Female 03/07/2019 2:04 PM EDT Sexual Orientation Straight 03/07/2019 2: 04 PM EDT Job Start Date Occupation Industry Not on file Not on file Not on file documented as of this encounter Functional Status Functional Status Response Date of Assess ment Are you deaf or do you have serious difficulty h earing? No 11/22/2023 Are you blind or do you have serious difficulty seeing, even when wearing glasses? No 11/22/2023 Do you have serious difficul ty walking or climbing stairs? (5 years old or older) No 11/22/2023 Do you have difficulty dress ing or bathing? (5 years old or older) No 11/22/2023 Because of a physical, menta l, or emotional condition, do you have difficulty doing errands alone such as visiting a doctor s office or shopping? (15 years old or older) No 11/22/20 Cognitive Status Response Date of Assessm ent Because of a physical, menta l, or emotional condition, do you have serious difficulty concentrating, remembering, or making decisions? (5 years old or older) No 11/22/2023 documented as of this encounter Plan of Treatment Upcoming Encounters Date Type Department Care Team (Late st Contact Info) Description 09/11/2024 1:00 PM EDT Office Visit Derm[facility] [employer] [address] [place] [address] Raissa Herrera MD [address] [facility] [place] [id number] 01/08/2025 12:00 PM EST Office Visit [facility] [address] [place] [phone] Gaurang Leslie PA-C [address] [phone] Health Maintenance Due Date Last Done Comments COVID-19 Vaccine (2022- season) 2023 09/26/2022, 04/03/2022, 10/17/2021, Additional history exists Influenza Vaccine (FLU shot) (#1) 2024 09/24/2023, 09/05/2022, 09/01/2021, Additional history exists GFR 11/01/2024 05/02/2024, 10/27, 11/22/2023, Additional history exists HbA1c 11/01/2024 05/02/2024, 10/26, 11/10/2023, Additional history exists CKD HGB USE SMARTSET 34867 11/23/202411/23, 11/22/2023, 11/21/2023, Additional history exists Depression Monitoring 12/27/2024 12/27/2023 CKD PHOS USE SMARTSET 87600 05/02/2025 06/0 05/2024, 03/06/2023, 09/05/2022, Additional history exists Diabetic Foot Exam 05/02/2025 05/02/2024, 0 07/28/2022, 07/07/2021 TSH 05/02/2025 05/02/2024, 02/25, 09/05/2022, Additional history exists Diabetic Eye Exam 05/27/2025 05/27/2024, , 05/25/2023, Additional history exists Albumin/Creatinine Ratio 06/18/2025 024, 03/06/2023, 09/25/2022, Additional history exists Colonoscopy 07/23/2025 07/23/2020, 06/27, 02/07/2010 DTaP,Tdap,and Td Vaccines (3 - Td or Tdap) 10/09/2029 10/09/2019, 07/27/2009 Pneumococcal Vaccine: 65+ Years Completed 05/10/2016, 03/30/2015, 10/21/2008 RETIRED - COLONOSCOPY-EVERY 5 YRS AGES 18-100 Discontinued 07/23/2020, 07/23/2020, 11/02/2015 (Declined), Additional history exists Zoster Vaccines Completed 08/06/2020, 04/27, 09/09/2013 HPV (Gardasil) Vaccine Aged Out No lo nger eligible based on patient's age to complete this topic Hepatitis B Vaccine Aged Out No longe r eligible based on patient's age to complete this topic MENINGOCOCCAL (MENACTRA/MENVEO) Aged Out No longer eligible based on patient's age to complete this topic documented as of this encounter Medical Devices Implanted Type Area Gantry Crane Operator Device Identifier Shelf Expiration Date Model / Serial / Lot Lens Intraoc 21.5 - [id number] - [id number] Implanted:Qty: 1 on 02/11/2019 by Arya Srivastava MD at OR [facility] Left: Eye [employer]OM[employer] 08/25/2023 [id number] / [id number] / [id number] Lens Intraoc 22.0 - [id number] - [id number] Implanted:Qty: 1 on 2019 by Arya Srivastava MD at OR [facility] Right: Eye [employer]OMB 08/25/2023 [id number] / [id number] / [id number] Single Use Repositional Clip Implanted:Qty: 1 on 08/25/2020 by Jim Coronado MD at ENDOSCOPY [facility] N/A: Abdomen 11/25/2022 [id number] / [id number] Description:duodenum documented as of this encounter Procedures Procedure Name Priority Date/Time Associated Diagnosis Comments ECHO, COMPLETE (2D), TRANS-THORACIC Routine 06/27/2024 12:58 PM EDT documented in this encounter Results * ECHO, COMPLETE (2D), TRANS-THORACIC (06/27/2024 12:58 PM EDT) LEFT VENTRICULAR EJECTION FRACTION 50 % [facility] 06/27/2024 12:5 8 PM EDT Gaurang Leslie PA-C ECHOCARDIOLOGY [facility] documented in this encounter Advance Directives * Full Code (Latest Code Status on File) Date Activated Date Inactivated Comments 11/22/2023 2:39 AM 11/23/2023 4:26 PM This order reflects the patients wishes and were consensually agreed upon. Question Answer Comments Discussion of Advance Directives occurred with: Patient Does the patient have a Living Will? No Does the patient have Health Care Power of Attor brock? No * Limited Code Date Activated Date Inactivated Comments 11/10/2023 12:50 AM 11/11/2023 5:26 PM This orde r reflects the patients wishes and were consensually agreed upon. Question Answer Comments Discussion of Advance Directives occurred with: Patient Does the patient have a Living Will? No Does the patient have Health Care Power of Attor brock? No Bag Valve Device? No Intubation? No Cardiac Compressions? Yes Defibrillation? Yes Synchronized Cardioversion? Yes External Pacemaker? Yes Cardiac Drugs? Yes * Full Code Date Activated Date Inactivated Comments 06/26/2017 4:15 PM 06/28/2017 6:49 PM This order ref lects the patients wishes and were consensually agreed upon. Question Answer Comments Discussion of Advance Directives occurred with: Patient Does the patient have a Living Will? No Does the patient have Health Care Power of Key Account Manager? Yes, not currently available Care Teams Endbander Relationship Specialty Start Date End Date Gaurang Leslie PA-C [address] [id number] PCP - General Physician Director Of Institutional Giving 11/24/22 documented as of this encounter
[2024-07-01] MEDS ORDERED: ONDANSETRON INJ 2 MG/ML 2 ML VIAL ONE (07:00)
[2024-07-01] MEDS ORDERED: MIDAZOLAM HCL 1 MG/ML 2ML VIAL ONE (07:00)
[2024-07-01] MEDS ORDERED: DEXAMETHASONE SOD INJ 4 MG/ML VIAL ONE (07:00)
[2024-07-01] MEDS ORDERED: LIDOCAINE 2% 2 ML VIAL/AMP(20MG/ML) INFIL ONE (07:00)
[2024-07-01] MEDS ORDERED: PROPOFOL IV EMULSION 10 MG/ML 20 ML VIAL IV ONE (07:00)
[2024-07-01] MEDS ORDERED: fentaNYL citrate PF 100 MCG/2 ML VIAL ONE ×2 (07:00→08:05)
[2024-07-01] MEDS: CeleBREX 200 MG CAP PO SCH (07:11)
[2024-07-01] MEDS: GABAPENTIN 300 MG CAP PO SCH (07:12)
--- NOTE | 2024-07-01 07:15 | History & Physical Bridge Note ---
Date of Service July 01, 2024 History & Physical Bridge Note I have examined the patient, reviewed the History & Physical and in the interval since the performance of the History & Physical I have noted the following changes of clinical significance: no changes noted
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
[2024-07-01] MEDS: LR 15ML/HR IV SCH (07:17)
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
[2024-07-01] MEDS ORDERED: ATROPINE SULFATE 0.1 MG/ML 10ML SYR IV PRN (07:19)
[2024-07-01] MEDS ORDERED: ePHEDrine sulfate 50 MG/ML AMP IV PRN (07:19)
[2024-07-01] MEDS ORDERED: DROPERIDOL 5 MG/2 ML VIAL IV PRN (07:19)
[2024-07-01] MEDS: LR 60ML/HR IV SCH (07:24)
[2024-07-01] MEDS: ceFAZolin 2000MG 2,000 MG/15 ML SYR IV SCH ×2 (07:39→16:03)
[2024-07-01] MEDS: BUPIVACAINE/EPINEPHRINE 0.25% 1:200,000 30 ML VIAL ONE (08:11)
[2024-07-01] MEDS: ceFAZolin 330 MG/ML 1 GM VIAL ONE (08:11)
[2024-07-01] MEDS ORDERED: LARYING-O-JET KIT (LTA) ONE (08:16)
[2024-07-01] MEDS ORDERED: SUGAMMADEX SODIUM 200 MG/2 ML VIAL IV ONE (08:16)
[2024-07-01] MEDS ORDERED: ROCURONIUM BROMIDE 10 MG/ML 5 ML VIAL IV ONE (08:16)
[2024-07-01] MEDS ORDERED: ePHEDrine sulfate 50 MG/5 ML SYR ONE (08:30)
[2024-07-01] MEDS: FLOSEAL HEMOSTATIC MATRIX 10ML TOP ONE (09:03)
--- NOTE | 2024-07-01 09:11 | Operative Report ---
Post Operative Report Pre & Post Diagnosis Operation Date: 07/01/24 07:30 Pre-Op Diagnosis: Lumbar Disc Herniation with Radiculopathy severe lumbar spinal stenosis Post-Op Diagnosis: Same I identified the patient and participated in the time-out.: Yes Procedure Operation Date: 07/01/24 07:30 Actual Procedures #1 decompression with bilateral medial facetectomies and foraminotomies T12-L1 L1-L2. #2 posterior spinal fusion T12-L2. #3 placement of posterior instrumentation T12-L1 with connectors at L2-L3. #4 interbody fusion L1-L2. #5 placement spiral 8 x 22 mm at L1-L2. #6 placement locally harvested morselized autograft and posterior gutters per #7 placement infuse collagen sponge combined with Koros in the posterior lateral gutters and Morpheus bone graft interbody space. Surgeon Randal Ramirez, Auto Fleet Manager Sindi Bianchi Estimated Blood Loss 150 Findings See Below The patient is 5 foot 1 weighing over 80 kg with a BMI in excess of 33. Patient's body was did contribute to significant technical difficulty with positioning exposure and the procedure itself at least 50% increased operative time. Specimens None Indications This is a 79-year-old female presents problems diagnosis of failed course of nonoperative care is here for surgical invention. Description of Procedure Patient was met with identified informed consent obtained. Patient was then taken to the operative suite underwent patient placed in a prone position on the Spenser table on top of the Cyrus frame. All bony prominences well-padded eyes inspected to ensure no external pressure placed upon the. This point the lumbar spine was prepped and draped in a sterile fashion. Sharp dissection with assistance of Bovie cautery form down to and exposing the lamina and transverse processes of T12 and L1 with instrumentation at L2-L3. Informed complete laminectomy L1 including bilateral medial facetectomies and foraminotomies addressing severe spinal stenosis. This was followed by partial laminectomy of T12 with bilateral medial facetectomies to address all neural compression. Pedicle screws then placed in T12 and L1 bilaterally with assistance of fluoroscopy. By way of transforaminal approach and right a complete discectomy of L1-L2 was performed endplates guarded to subcortical bleeding bone and 8 x 22 mm spiral cage filled with Morpheus bone graft tapped in position. Pro size rods were then placed and by way of connectors attached to the L2-L3 gage. Transverse processes of T12 L1-L2 bur to subcortical bleeding bone. Infuse collagen sponge, with Koros bone graft locally harvested morselized autograft placed in posterior gutters. 15 round HAFSA inserted. The incision was then closed with 1 Vicryl in the fascia 2-0 Vicryl subcutaneously and 4 Monocryl for final skin closure. Steri-Strips sterile dressing placed. Patient awakened taken to PACU stable condition. Please note spinal cord monitoring was utilized at the procedure no changes noted. Lastly Sindi Bianchi was present out the entire procedure and all the patient positioning complex portions of the surgery and possible closure. Im ordering 20 grams of Triple [place] Collagen Powder ([employer] A6010) to treat an incision wound that was caused by a spine procedure. The incision is approximately 2 cm(W) x 4 cm(L) into the joint (D) in size and is a full thickness wound. Triple [place] collagen comes in 1 gram packets so 20 packets were ordered. Given the size of the wound, with light to moderate exudate I chose to order a 20 day supply. The patient will be provided instructions for proper application of the collagen wound kit. The patient will be asked to apply the collagen powder daily and then cover it with sterile dressings dispensed. Collagen was selected as I expect the collagen to attract monocytes and fibroblasts, act as a sacrificial substrate for MMPs, and ultim ately proved a matrix for tissue and vessel growth. The collagen will act as a primary dressing in this scenario. It is medically necessary for proper healing of these wounds to improve bioavailability and contact with each wound surface, this is also to help prevent infection of wounds and promote healing ultimately leading to a better healing outcome and limit the risk of infection. I attest to the content of the Intraoperative Record and any orders documented therein. Any exceptions are noted below.
--- NOTE | 2024-07-01 09:18 | Fluoroscopy Report ---
INTRAOPERATIVE RADIOGRAPHS CLINICAL HISTORY: Lumbar spinal fusion surgery. Fluoro time: 21 seconds Ka,r: 11.60 mGy FINDINGS: 2 spot fluoroscopic views of the lumbar spine are presented. There is evidence of multileve l laminectomy and posterior fusion throughout the lumbar spine. The levels cannot be delineated on th e provided images. There has been discectomy at 2 levels. The orthopedic hardware appears intact. IMPRESSION: Intraoperative images from multilevel lumbar spinal fusion as above. Electronically signed by: Moreno Hinton M.D. 07/01/2024 9:17 AM
[2024-07-01] MEDS: HYDROmorphone INJ 2 MG/ML SYR/VIAL IV PRN (10:25)
--- NOTE | 2024-07-01 10:59 | Anesthesiology Progress Note ---
Date of Service July 01, 2024 Anesthesia Post Procedure Vital Signs Vital Signs: Temp Pulse Pulse Resp BP Pulse Ox O2 Del Method 07/01/24 10:45 65 14 121/63 93 Nasal Cannula 07/01/24 10:30 64 14 140/71 94 Nasal Cannula 07/01/24 10:15 62 16 136/75 94 Nasal Cannula 07/01/24 10:05 36.5 C 62 14 135/72 93 Nasal Cannula 07/01/24 09:55 62 20 131/76 94 Nasal Cannula 07/01/24 09:45 64 20 153/67 H 98 Oxymask 07/01/24 09:35 63 22 147/85 H 97 Oxymask 07/01/24 09:27 36.5 C 62 16 157/85 H 95 Oxymask 07/01/24 06:52 37 C 58 L 18 171/91 H 93 Room Air O2 Flow Rate 07/01/24 10:45 2 07/01/24 10:30 2 07/01/24 10:15 2 07/01/24 10:05 2 07/01/24 09:55 2 07/01/24 09:45 8 07/01/24 09:35 8 07/01/24 09:27 8 07/01/24 06:52 Pain Intensity Medial Back: Pain Intensity: 5 Transfer of Care Handoff Completed per policy Notes Mental Status: alert / awake / arousable and participated in evaluation Nausea / Vomiting: adequately controlled Pain: adequately controlled Airway Patency, RR, SpO2: stable & adequate BP & HR: stable & adequate Hydration State: stable & adequate Anesthetic Complications: no major complications apparent and Pt Satisfied with anesthetic care
[2024-07-01] MEDS ORDERED: diphenhydrAMINE Capsule 25 MG CAP PO PRN (11:12)
[2024-07-01] MEDS ORDERED: SOD PHOSPHATE/SOD BIPHOSPHATE ENEMA 132 ML BTL PR PRN (11:12)
[2024-07-01] MEDS ORDERED: LORazepam 0.5 MG TAB PO PRN (11:12)
[2024-07-01] MEDS ORDERED: DO NOT ADMINISTER PNEUMOCOCCAL VACCINE PRN (11:12)
[2024-07-01] MEDS ORDERED: HYDROmorphone INJ 1 MG/ML SYRINGE IV PRN (11:12)
[2024-07-01] MEDS ORDERED: bisacodyL 10 MG SUPP PR PRN (11:12)
[2024-07-01] MEDS ORDERED: FAMOTIDINE 20 MG TAB PO PRN (11:12)
[2024-07-01] MEDS ORDERED: HYDROmorphone INJ 0.5 MG/0.5 ML SYR IV PRN (11:12)
[2024-07-01] MEDS ORDERED: METOCLOPRAMIDE HCL INJ 5 MG/ML 2 ML VIAL IV PRN (11:12)
[2024-07-01] MEDS ORDERED: ONDANSETRON INJ 2 MG/ML 2 ML VIAL IV PRN (11:12)
[2024-07-01] MEDS ORDERED: traMADol HCL 50 MG TABLET PO PRN (11:12)
[2024-07-01] MEDS ORDERED: LORazepam 0.5 MG in SYRINGE 0.25 ML IV PRN (11:12)
[2024-07-01] MEDS ORDERED: ALUMINUM/MAGNESIUM SUSP 30 ML UDC PO PRN (11:12)
[2024-07-01] MEDS ORDERED: DO NOT ADMINISTER FLU VACCINE PRN (11:12)
[2024-07-01] MEDS ORDERED: ACETAMINOPHEN 1,000 MG/100 ML VIAL IV PRN (11:12)
[2024-07-01] MEDS ORDERED: ONDANSETRON 4 MG OD TAB PO PRN (11:12)
[2024-07-01] MEDS ORDERED: MAGNESIUM HYDROXIDE SUSP 30 ML UDC PO PRN (11:12)
[2024-07-01] MEDS ORDERED: NALOXONE HCL 0.4 MG/1 ML VIAL/CARP IV PRN (11:12)
[2024-07-01] MEDS ORDERED: hydrOXYzine HCl 25 MG TAB PO PRN (11:12)
[2024-07-01] MEDS ORDERED: PROMETHAZINE HCL 12.5 MG in SODIUM CHLORIDE 0.9% 50 ML IV PRN (11:12)
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
[2024-07-01] MEDS: LACTATED RINGER'S 1,000 ML IV SCH (12:01)
[2024-07-01] MEDS ORDERED: GLUCOSE 10 TAB/TUBE PO PRN (14:41)
[2024-07-01] MEDS ORDERED: GLUCAGON FOR INJ 1 MG VIAL SQ PRN (14:41)
[2024-07-01] MEDS ORDERED: CARBOHYDRATES FOR HYPOGLYCEMIA PO PRN (14:41)
[2024-07-01] MEDS ORDERED: GLUCOSE 40% GEL 15 GM TUBE PO PRN (14:41)
[2024-07-01] MEDS ORDERED: DEXTROSE 50% 50 ML SYRINGE IV PRN (14:41)
[2024-07-01] MEDS: INSULIN ASPART PER UNIT CHARGE SC SCH (16:33)
[2024-07-01] MEDS: carvediloL 25 MG TAB PO SCH (21:02)
[2024-07-01] MEDS: DOCUSATE SODIUM/SENNA 50/8.6MG TAB PO SCH (21:03)
[2024-07-01] MEDS: CITALOPRAM 20 MG TAB PO SCH (21:03)
[2024-07-01] MEDS: oxyCODONE HCL IR 5 MG TAB (IMMEDIATE RELEASE) PO PRN (21:06)
[2024-07-02] MEDS: MELATONIN 3 MG TAB PO PRN (01:28)
[2024-07-02] MEDS: POLYETHYLENE (MIRALAX) 17 GM PACK PO SCH (06:13)
[2024-07-02] MEDS: LEVOTHYROXINE SODIUM 88 MCG TABLET PO SCH (06:13)
[2024-07-02 06:34] LABS: Basophils # (auto) 0.02 K/uL (0.00-0.20); Basophils % (auto) 0.1 %; Eosinophils # (auto) 0.01 K/uL (0.00-0.50); Eosinophils % (auto) 0.1 %; Immature Granulocytes # (auto) 0.04 K/uL (0.01-0.20); Immature Granulocytes % (auto) 0.3 %; Lymphocytes # (auto) 3.06 K/uL (1.20-3.40); Lymphocytes % (auto) 22.5 %; Mean Corpuscular Hemoglobin 29.9 pg (25.0-34.0); Mean Corpuscular Hgb Conc 33.3 g/dL (32.0-36.0); Mean Corpuscular Volume 89.7 fL (80.0-100.0); Mean Platelet Volume 10.2 fL (9.4-12.4); Monocytes # (auto) 1.15 K/uL (0.11-0.59); Monocytes % (auto) 8.4 %; Neutrophils # (auto) 9.33 K/uL (1.40-6.50); Neutrophils % (auto) 68.6 %; Platelet Count 218 K/uL (130-400); RDW Coefficient of Variation 14.8 % (11.5-14.5); RDW Standard Deviation 48.7 fL (36.4-46.3); Red Blood Count 3.68 M/uL (4.20-5.40); White Blood Count 13.61 K/ul (4.8-10.8)
[2024-07-02 07:01] LABS: BUN Creatinine Ratio 24.2 (10-20); Calcium 8.8 mg/dl (8.6-10.3); Creatinine Clr Calc Pharmacy 45.6 ml/min; Est GFR (African American) 63.3 ml/min; Est GFR (Non-African American) 54.6 ml/min; Magnesium 1.6 mg/dl (1.7-2.4); Potassium 4.1 mmol/L (3.5-5.1)
[2024-07-02] MEDS ORDERED: PROMETHAZINE 12.5 MG/50.5 ML BAG IV PRN (07:03)
[2024-07-02] MEDS: dexAMETHasone 6 MG in SYRINGE 0 ML IV SCH (08:29)
[2024-07-02] MEDS: ATORVASTATIN 40 MG TAB PO SCH (08:32)
[2024-07-02] MEDS: MULTIVITAMIN TAB PO SCH (08:32)
[2024-07-02] MEDS: FENOFIBRATE NANOCRYSTALLIZED 48 MG TABLET PO SCH (08:32)
[2024-07-02] MEDS: hydroCHLOROthiazide 25 MG TAB PO SCH (08:32)
[2024-07-02] MEDS: amLODIPine BESYLATE 5 MG TAB PO SCH (08:33)
[2024-07-02] MEDS: ASPIRIN 81 MG ECTAB PO SCH (08:33)
[2024-07-02] MEDS: OMEGA-3 (PURIFIED FISH OIL) 1 GM CAP PO SCH (08:33)
[2024-07-02] MEDS: PANTOprazole 40 MG TAB PO SCH (08:33)
[2024-07-02] MEDS: MAGNESIUM SULFATE / D5W 1 GM/100 ML BAG IV SCH (09:26)
--- NOTE | 2024-07-02 10:51 | Orthopedic Progress Note ---
Date of Service July 02, 2024 Assessment & Plan (1) Spinal stenosis, lumbar region with neurogenic claudication: Plan: At this point we will continue physical therapy monitor HAFSA output over the discharge over the next few days. Admission and Anticipated Discharge Date Admission Date: July 01, 2024 Subjective Patient's back pain is controlled leg symptoms improved Physical Exam Physical Exam: Patient has good strength testing. She is comfortable. Results & Data Vital Signs (Past 12 Hours) Vital Signs Temp Pulse Resp BP Pulse Ox O2 Del Method 07/02/24 08:30 76 07/02/24 07:43 36.6 C 58 L 16 118/68 92 Room Air Queries Orthopedic Spine Obesity: Yes
[2024-07-02] MEDS: OLMESARTAN MEDOXOMIL 40 MG TAB PO SCH (11:08)
--- NOTE | 2024-07-02 13:11 | Hospitalist Progress Note ---
Date of Service July 02, 2024 Assessment & Plan (1) Spinal stenosis, lumbar region with neurogenic claudication: (2) Hypothyroidism: (3) Hyperlipidemia: (4) Hypertension: (5) Prediabetes: (6) GERD (gastroesophageal reflux disease): Plan: Spinal stenosis Lumbar decompression fusion T12- L1, L1-L2 by Dr. Ramirez on 07/01/24 - POD #1 - 11.9 on 06/23, monitor am labs for possible postop anemia - Pain management, bowel regimen and DVT ppx per the primary team, Last BM was on 07/01 - PT/OT consults - Pt wears 2 L O2 HS routinely, none during the day at baseline. Currently on room air when awake. HTN HLD - Continue cavedilol, olmesartan, amlodipine, HCTZ pending BPs remain stable. and atorvastatin - holding baby aspirin due to surgery above, Stopped 7 days prior to surgery, resumed. Prediabetes - Last A1C was 6.7 on 06/23 - diet and exercise to be encouraged - PT will require glycemic monitoring, accuchecks achs - Pt to f/u w/ pcp for shelter monitoring. GERD - Continue omeprazole DVT ppx:teds, scds CODE: FULL Dispo: From home, likely to remain in the hospital x 1-2 days Admission and Anticipated Discharge Date Admission Date: July 01, 2024 Subjective Patient was seen and examined at bedside. Patient was lying in bed, on room air, resting comfortably, not in any acute distress. Patient reports bilateral radicular symptoms improved, reports operative site pain under control. Patient reports eating okay and has already moved bowel. Physical Exam Physical Exam: General: awake, alert, no apparent distress, elderly white female Head: Normocephalic, atraumatic ENT: PERRL, EOMI, no pharyngeal exudate, mucous membranes moist Chest: Clear to auscultation, on RA no adventitious breath sounds Cardiac: Regular rate and rhythm, no murmur, no JVD, normal peripheral pulses, good capillary refill Abdominal: NABS x 4 quadrants, soft, nondistended, nontender to palpation, no rebound or guarding Back: Dressing C/D/I, HAFSA drain in place with serosanguineous outs Extremities: Normal inspection, no peripheral edema or erythema, calfs nontender to palpation Psych: Normal mood and affect Neuro: AAO x 3, strength intact bilaterally and rated 5/5, no motor deficits, speech is clear, no peripheral sensory deficits Results & Data Results & Data Vital Signs (Past 12 Hours) Vital Signs Temp Pulse Resp BP Pulse Ox O2 Del Method 07/02/24 08:30 76 07/02/24 07:43 36.6 C 58 L 16 118/68 92 Room Air
[2024-07-02] MEDS: LOSARTAN POTASSIUM 50 MG TAB PO SCH (13:14)
--- NOTE | 2024-07-03 08:20 | Orthopedic Progress Note ---
Date of Service July 03, 2024 Assessment & Plan (1) Spinal stenosis, lumbar region with neurogenic claudication: Plan: Today we will continue physical therapy monitor her HAFSA output anticipate discharge home tomorrow. Admission and Anticipated Discharge Date Admission Date: July 01, 2024 Subjective Back pain controlling symptoms improved Physical Exam Physical Exam: Patient is comfortable.*Testing. Results & Data Vital Signs (Past 12 Hours) Vital Signs Temp Pulse Resp BP Pulse Ox O2 Del Method O2 Flow Rate 07/03/24 07:33 36.6 C 61 16 132/72 93 Room Air 07/02/24 22:28 Nasal Cannula 2 07/02/24 20:51 36.8 C 71 18 149/70 H 94 Room Air Queries Orthopedic Spine Obesity: Yes
[2024-07-03 08:26] LABS: Hemoglobin 10.3 g/dl (12.0-16.0); Mean Corpuscular Hemoglobin 29.3 pg (25.0-34.0); Mean Corpuscular Hgb Conc 32.2 g/dL (32.0-36.0); Mean Corpuscular Volume 91.2 fL (80.0-100.0); Mean Platelet Volume 10.1 fL (9.4-12.4); Platelet Count 188 K/uL (130-400); RDW Coefficient of Variation 15.3 % (11.5-14.5); RDW Standard Deviation 50.6 fL (36.4-46.3); Red Blood Count 3.51 M/uL (4.20-5.40); White Blood Count 11.91 K/ul (4.8-10.8)
--- NOTE | 2024-07-03 16:05 | Hospitalist Progress Note ---
Date of Service July 03, 2024 Assessment & Plan (1) Spinal stenosis, lumbar region with neurogenic claudication: (2) Hypothyroidism: (3) Hyperlipidemia: (4) Hypertension: (5) Prediabetes: (6) GERD (gastroesophageal reflux disease): Plan: Spinal stenosis Lumbar decompression fusion T12- L1, L1-L2 by Dr. Ramirez on 07/01/24 - POD #2 - 11.9 on 06/23, monitor am labs for possible postop anemia - Pain management, bowel regimen and DVT ppx per the primary team, Last BM was on 07/01 - PT/OT consults - Pt wears 2 L O2 HS routinely, none during the day at baseline. Currently on room air when awake. HTN HLD - Continue cavedilol, olmesartan, amlodipine, HCTZ pending BPs remain stable. and atorvastatin - c/w home aspirin Prediabetes - Last A1C was 6.7 on 06/23 - diet and exercise to be encouraged - PT will require glycemic monitoring, accuchecks achs - Pt to f/u w/ pcp for shelter monitoring. GERD - Continue omeprazole DVT ppx:tedjasmina, scds CODE: FULL Dispo: From home, likely dc [place]. Admission and Anticipated Discharge Date Admission Date: July 01, 2024 Subjective Patient was seen and examined at bedside. Patient was lying in bed, on room air, resting comfortably, not in any acute distress. Patient reports bilateral radicular symptoms improved, reports operative site pain under control. Patient reports eating okay and moving bowels ok. Physical Exam Physical Exam: General: awake, alert, no apparent distress, elderly white female Head: Normocephalic, atraumatic ENT: PERRL, EOMI, no pharyngeal exudate, mucous membranes moist Chest: Clear to auscultation, on RA no adventitious breath sounds Cardiac: Regular rate and rhythm, no murmur, no JVD, normal peripheral pulses, good capillary refill Abdominal: NABS x 4 quadrants, soft, nondistended, nontender to palpation, no rebound or guarding Back: Dressing C/D/I, HAFSA drain in place with serosanguineous outs Extremities: Normal inspection, no peripheral edema or erythema, calfs nontender to palpation Psych: Normal mood and affect Neuro: AAO x 3, strength intact bilaterally and rated 5/5, no motor deficits, speech is clear, no peripheral sensory deficits Results & Data Results & Data Vital Signs (Past 12 Hours) Vital Signs Temp Pulse Resp BP Pulse Ox O2 Del Method 07/03/24 15:19 36.5 C 60 16 128/73 94 Room Air 07/03/24 07:33 36.6 C 61 16 132/72 93 Room Air
[2024-07-03] MEDS: ACETAMINOPHEN 500 MG TAB PO PRN (18:29)
[2024-07-04 07:32] VITALS: BP 168/89; PULSE 61; RESP 16; TEMP 97.9; O2SAT 96
--- NOTE | 2024-07-04 11:19 | Discharge Summary ---
Date of Service July 04, 2024 Admission HPI Per Admitting Provider This is a 71-year-old female presents for chronic persistent back and leg pain The course of nonoperative care is here for surgical invention. Principal Diagnosis Lumbar spinal stenosis with neurogenic claudication Discharge Data Allergies Allergy/AdvReac Type Severity Reaction Status Date / Time adhesive Allergy Unknown Skin sore, Verified 06/20/24 14:01 redness (bandaids) hydrochlorothiazide AdvReac Unknown Decreased Verified 06/20/24 14:01 kidney function (per PCP records) Consultations 07/01/24 11:12 Consult Hospitalist Routine Procedures Performed Operation Date: 07/01/24 07:30 Actual Procedures p L1-L2 Decompression, T12-L2 Fusion Connect to Previous Hardware at L2, Spinal Cord Monitoring(Not Applicable) - Randal Ramirez DO Ordered Studies 07/01/24 07:30 FL lumbar spine 2-3V Routine Hospital Course (1) Spinal stenosis, lumbar region with neurogenic claudication: Plan Patient with lumbar decompression fusion trial as well as taken orthopedic for postoperative postop patient progressed appropriate. Marked improvement of leg pain and back symptoms. HAFSA drain decreasing well. Extra strength testing. Subsidy discharged home. Discharge orders instructions from chart for further review. Total Time Total Time Spent Total Time Spent (In Minutes): 20 minutes Discharge Plan Discharge Items Patient Disposition: Home - Self-Care Reason For Visit: Lumbar Disc Herniation with Radiculopathy, Neuroge Discharge Diagnosis: Lumbar spinal stenosis with neurogenic claudication Activity: As commented below Non-emergency contact: Primary Care Provider Call non-emergency contact if: you have any medication questions Follow-up/Referrals: Gaurang Leslie PA-C [Primary Care Provider] - Diet: Regular Addtl Attending Provider Instructions: ACTIVITY RECOMMENDATIONS: SELF CARE INSTRUCTIONS AFTER THORACIC/LUMBAR FUSIONS 1. You may walk to your tolerance. It is good exercise for your legs and back. Expect some back and intermittent leg aches and pains. 2. You may perform "counter-top" level activities (make a sandwich, fernanda with a project, etc.). 3. No bending or lifting of more than 10 pounds or back twisting of any nature (roll like a log when turning in bed). 4. You may ride in a car for 20-30 minutes at a time. No driving until after your first visit with your doctor. 5. Frequent changes of position and restricting sitting to 30 minutes at a time will help limit the amount of back spasms and stiffness you may experience. 6. You may discontinue the use of ambulatory aids (cane, crutches, etc.) once your strength and confidence allow. 7. You may engineering instructor the shower and let water strike your incision when you arrive home at least once daily. Do not take a tub bath, sit in a hot tub or go into a swimming pool until after your first recheck in the office. SPECIAL CARE INSTRUCTIONS: VERY IMPORTANT TO READ AND REVIEW A. Your surgical incision has been closed with a cosmetic suture under the skin that will dissolve in about 6 weeks. In 14 days, you can use a pair of clean scissors and cut the suture that is left outside of the skin at the ends of your incision. 1. The small skin tapes can be removed 7 days after surgery if they have not fallen off by that point. 2. You may keep the wound open to air as much as possible to promote healing after post-op day number 5 unless told otherwise by your doctor. 3. If you think the wound looks like it is becoming infected (redness or worsening drainage) and/or you are experiencing fever, chill or worsening back pain and muscle spasms, contact the office so that we may evaluate you as soon as possible. B. Complications are uncommon, but please contact us if you have any signs or symptoms of: 1. wound infection (fever higher than 102.5 degrees F, redness, separation of wound, drainage, or increasing pain from the incision) 2. blood clots in legs (pain, swelling, redness and warmth in legs) 3. urinary tract infection (fever higher than 102.5 degrees F, burning upon urination or increased frequency of urination) 4. nerve problems (inability to walk on your toes or heels, numbness, loss of bowel or bladder control) 5. any other symptoms that concern you C. Please call the office at if you have any concerns or questions about your operation or recovery. D. No smoking! Smoking drastically decreases the chance of a solid fusion. E. Do not take any anti-inflammatory medications (Indocin, Advil, Motrin, Aspirin, Naprosyn, etc.) as these may inhibit the chance of a solid fusion. Tylenol is okay to take for pain. MANAGING PAIN AFTER SPINAL SURGERY 1. Narcotic medication is intended for short-term use and will be provided for surgical pain. Surgical pain usually lasts for a period of 4-6 weeks. Narcotic medication includes Percocet, Vicodin, Darvocet, Tylenol #3 or Lortab. 2. Longer-term pain is more appropriately treated with non-narcotic medication such as Tylenol ES. 3. Muscle spasm is not appropriately treated with narcotics. Muscle relaxers such as Soma, Flexeril or Skelaxin can be used along with Tylenol ES. 4. Remember that we all live with some "aches and pains". This is not unusual or uncommon after an injury or as we get older. a. Back pain is expected and may include muscle spasms for 4 to 6 weeks after surgery. The pain should gradually improve. If the pain worsens for no apparent reason, please contact the office. b. Intermittent leg pain may also be experienced and should not be concerned about unless it worsens for no apparent reason. If so, please contact the office. 5. We will provide appropriate medication within the normal guidelines of their prescribed use. We will also be very cautious and aware of potential abuse and extended duration of patients' medication needs. a. Pain medications are for your comfort and to assist with sleep and rest so that the tissue can heal. They are not provided in order to return to normal activity and should not be used through the day. To do so or worsening pain at night can result from ongoing tissue damage and development of tolerance to the prescribed medicine. 6. Please allow 2-3 days to process refills. Prescriptions will not be mailed but must be picked up at the office. FOLLOW UP VISIT: Keep your scheduled follow-up appointment. Any questions, please call the office at . Pending Studies at Discharge: No Stand-Alone Forms: My [facility], Smoking Cessation Medications and DC Order Prescriptions: New tramadol 50 mg tablet 50 mg PO Q6H PRN (Reason: pain, moderate) Qty: 30 0RF oxycodone 5 mg tablet 5 mg PO Q6H PRN (Reason: pain) Qty: 30 0RF Continued omega 2-zag-[id number]-fish oil [Fish Oil] 300-1,000 mg capsule,delayed release(DR/EC) 1 cap PO DAILY aspirin [Adult Aspirin Regimen] 81 mg tablet,delayed release (DR/EC) 81 mg PO DAILY olmesartan 40 mg tablet 40 mg PO DAILY Qty: 90 3RF carvedilol 12.5 mg tablet 25 mg PO BID Rx Instructions: must administer with a meal/food hydrochlorothiazide 25 mg tablet 25 mg PO DAILY Qty: 90 3RF fenofibrate nanocrystallized [Tricor] 48 mg tablet 48 mg PO QAM atorvastatin 40 mg tablet 40 mg PO QAM amlodipine 10 mg tablet 10 mg PO QAM Qty: 90 3RF multivitamin Tablet 1 tab PO QAM omeprazole 40 mg Capsule,Delayed Release(Dr/Ec) 40 mg PO QAM levothyroxine 88 mcg Capsule 88 mcg PO QAM melatonin 5 mg Capsule 10 mg PO HS PRN (Reason: Insomnia) citalopram 20 mg tablet 20 mg PO HS lidocaine HCl 4 % (40 mg/mL) solution 1 applic PO UD nystatin-triamcinolone 100,000-0.1 unit/g-% cream 1 applic TOPICAL DAILY acetaminophen 500 mg Tablet 1,000 mg PO Q6H PRN (Reason: Pain) docusate sodium [Stool Softener] 100 mg Tablet 100 mg PO QAM PRN (Reason: Constipation) Discharge Orders: Discharge Order (Routine); Ordered 07/04/24 Ordered By: Randal Ramirez Admission Data Admit Date/Time: 07/01/24 09:15 Attending Provider: Randal Ramirez Admit Provider: Randal Ramirez Primary Care Provider: Gaurang Leslie Other Providers: Nicole Vargas
--- NOTE | 2024-07-04 12:15 | Hospitalist Progress Note ---
Date of Service July 04, 2024 Assessment & Plan (1) Spinal stenosis, lumbar region with neurogenic claudication: (2) Hypothyroidism: (3) Hyperlipidemia: (4) Hypertension: (5) Prediabetes: (6) GERD (gastroesophageal reflux disease): Plan: Spinal stenosis Lumbar decompression fusion T12- L1, L1-L2 by Dr. Ramirez on 07/01/24 - POD #3 - 11.9 on 06/23, monitor am labs for possible postop anemia - Pain management, bowel regimen and DVT ppx per the primary team, Last BM was on 07/01 - PT/OT consults - Pt wears 2 L O2 HS routinely, none during the day at baseline. Currently on room air when awake. HTN HLD - Continue cavedilol, olmesartan, amlodipine, HCTZ and atorvastatin - c/w home aspirin Prediabetes - Last A1C was 6.7 on 06/23 - diet and exercise to be encouraged - PT will require glycemic monitoring, accuchecks achs - Pt to f/u w/ pcp for intermediate project manager monitoring. GERD - Continue omeprazole DVT ppx:michael scds CODE: FULL Dispo: From home, likely dc today. Admission and Anticipated Discharge Date Admission Date: July 01, 2024 Subjective Patient was seen and examined at bedside. Patient was walking in the hallway, on room air, not in any acute distress. Walked to the bedside where patient was examined. Patient reports bilateral radicular symptoms improved, reports operative site pain under control. Patient reports eating okay and moving bowels ok. Physical Exam Physical Exam: General: awake, alert, no apparent distress, elderly white female Head: Normocephalic, atraumatic ENT: PERRL, EOMI, no pharyngeal exudate, mucous membranes moist Chest: Clear to auscultation, on RA no adventitious breath sounds Cardiac: Regular rate and rhythm, no murmur, no JVD, normal peripheral pulses, good capillary refill Abdominal: NABS x 4 quadrants, soft, nondistended, nontender to palpation, no rebound or guarding Back: Dressing C/D/I, HAFSA drain in place with serosanguineous outs Extremities: Normal inspection, no peripheral edema or erythema, calfs nontender to palpation Psych: Normal mood and affect Neuro: AAO x 3, strength intact bilaterally and rated 5/5, no motor deficits, speech is clear, no peripheral sensory deficits Results & Data Results & Data Vital Signs (Past 12 Hours) Vital Signs Temp Pulse Resp BP Pulse Ox O2 Del Method 07/04/24 11:35 36.6 C 61 16 168/89 H 96 07/04/24 07:29 36.6 C 61 16 168/89 H 96 Room Air
== END 2024-07-04 12:36 | disposition home or self-care (01) | DRG 455 ==
LOC: ASU 05:47 → 3N 09:15